=== PATIENT | female | born 1940 | race Caucasian/White ===

== ENCOUNTER 2018-12-17 13:44 | Emergency (ER) | payer MEDICARE ==
[2018-12-17 14:15] LABS: #Basophils 0.1 thou/uL (0.0-0.2); #Eosinphils 0.1 thou/uL (0.0-0.7); #Lymphocytes 1.5 thou/uL (1.20-3.40); #Monocytes 0.9 thou/uL (0.11-0.59); #Neutrophils 5.8 thou/uL (1.40-6.50); %Basophils 0.6 % (0.0-1.0); %Eosinophils 0.8 % (0.0-10.0); %Lymphocytes 17.9 % (21.0-51.0); %Monocytes 10.8 % (0.0-10.0); %Neutrophils 69.9 % (42.0-75.0); Hemoglobin 12.4 g/dL (12.0-16.0); Mean Corpuscular HGB CONC 33.2 g/dL (32.0-36.0); Mean Corpuscular Volume 87.5 fL (78.0-98.0); Mean Platelet Volume 7.4 fL (7.4-10.4); Platelet Count 211 thou/uL (130-400); RBC Distribution Width 12.2 % (11.5-14.5); Red Blood Cell (RBC) Count 4.28 mill/uL (4.20-5.40); White Blood Cell (WBC) Count 8.3 thou/uL (4.8-10.8)
[2018-12-17 14:27] LABS: Bacteria/HPF None Seen HPF (None Seen); Bilirubin Negative (Negative); Blood, Urine Negative (Negative); Clarity Clear (Clear); Glucose, Urine (Dipstick) 100 mg/dL (Negative); Leukocyte 250 Leu/uL (Negative); Mucous/LPF 1+ LPF (<2+); Nitrite Negative (Negative); Protein, Urine (Dipstick) 30 mg/dL (Neg-Trace); RBC/HPF 0-3 HPF (0-3); Squamous Epithelial 0-3 HPF (0-3); Urobilinogen Normal mg/dL (Less than 2)
[2018-12-17 14:35] LABS: ALT (SGPT) Less than 7 U/L (8-55); AST (SGOT) 9 U/L (5-34); Albumin 4.4 g/dL (3.4-4.8); Alkaline Phosphatase 93 U/L (40-110); Anion Gap 13 mmol/L (10-20); BUN (Urea Nitrogen) 17 mg/dL (9.8-20.1); Calc. Creatinine Clearance 0 mL/min (70-130); Calcium 9.8 mg/dL (7.8-10.44); Carbon Dioxide 29 mmol/L (23-31); Chloride 99 mmol/L (98-107); Estimated GFR-MDRD 53; Globulin 2.7 g/dL (2.4-3.5); Glucose 77 mg/dL (83-110); Potassium 3.5 mmol/L (3.5-5.1); Protein, Total 7.1 g/dL (6.0-8.3); Sodium 137 mmol/L (136-145)
--- NOTE | 2018-12-17 15:14 | CT ---
CT BRAIN NONCONTRAST: DATE: 12/17/2018 HISTORY: 78-year-old female status post acute head trauma from fall. FINDINGS: There is no evidence of acute intra-axial or extra-axial hemorrhage. There is no midline shift or any other mass effect. There is no extra-axial fluid collection. There is no evidence of obstructive hydrocephalus. Calvarium is intact. IMPRESSION: No acute intracranial findings.
--- NOTE | 2018-12-17 15:16 | CT ---
CT CERVICAL SPINE NONCONTRAST: DATE: 12/17/2018 HISTORY: cervical trauma FINDINGS: There are no jumped or perched facets. There is no evidence of acute fracture. The vertebral body hei ghts are maintained. There is no prevertebral soft tissue swelling. IMPRESSION: No evidence of acute fracture or acute traumatic subluxation.
--- NOTE | 2018-12-17 15:30 | RAD ---
Radiograph right hip 2 views: DATE: 12/17/2018 HISTORY: 78-year-old female with acute traumatic right hip pain due to fall. FINDINGS: Old healed fracture deformity of right inferior ramus. No evidence of acute fracture. Femoral head co ntour maintained. Hip joint space maintained. No subcapital osteophytes. Diffuse osteopenia. Questionable deformity of right superior ramus superolaterally. IMPRESSION: 1. No acute fracture identified. 2. Osteopenia. 3. Old fracture deformity of right inferior ramus. 4. Questionable old fracture deformity of right superior ramus. 5. If symptoms do not improve in the next few days, noncontrast MRI of the pelvis and hip would be th e most sensitive modality to detect occult acute fractures.
--- NOTE | 2018-12-17 15:34 | RAD ---
RADIOGRAPH CHEST 1 VIEW: DATE: 12/17/2018 TIME: 2:56 PM HISTORY: 78-year-old female with dysphagia and choking when eating. Rule out aspiration. COMPARISON: none FINDINGS: At the lateral aspect of the right midlung zone, there is an approximately 2 cm focal nodular noncalc ified density with very irregular, ill-defined margins. The rest of the lungs are clear. Cardiomediastinal silhouette is normal. No pneumothorax. IMPRESSION: Focal right upper lobe opacity. Recommend chest CT to rule out lung cancer.
--- NOTE | 2018-12-17 16:46 | CT ---
CT THORAX NONCONTRAST: DATE: 12/17/2018 HISTORY: 78-year-old female with right lung nodule found on chest radiograph. COMPARISON: no prior CT FINDINGS: At the lateral aspect of the right upper lobe near the junction between the anterior segment and post erior segment, there is a very spiculated noncalcified pulmonary mass measuring approximately 3 x 2 x 2.5 cm, which contacts the right lateral pleural surface. At the anterior portion of the right middle lobe abutting the right minor fissure, there is a noncalc ified spiculated mass measuring approximately 2 x 1.5 x 2.5 cm. At the precarinal midline mediastinum, there is an enlarged 2 x 1.5 x 2 cm lymph node. There is an enlarged 1.5 x 2.5 x 2.5 cm subcarinal mediastinal lymph node. It is more difficult to evaluate for hilar lymphadenopathy without IV contrast. No cardiomegaly, pericardial effusion, pleural effusion, thoracic aortic aneurysm, pneumothorax, or p ulmonary edema. Mild to moderate centrilobular emphysematous changes of bilateral upper lobes. Trachea and bilateral mainstem bronchi are patent and clear. No destructive osseous lesion identified . No adrenal nodule. IMPRESSION: 1) right upper lobe 3 cm mass: Evidence for primary lung cancer. 2) right middle lobe 2.5 cm mass: Probably a second primary lung cancer. Less likely pulmonary metast asis. 3) suspicious for midline metastatic mediastinal lymphadenopathy.
== END 2018-12-17 19:21 | disposition home or self-care (01) ==
LOC: ERS 13:44
DX: G20 Parkinson's disease (principal); K22.2 Esophageal obstruction; R44.3 Hallucinations, unspecified; Z79.899 Other long term (current) drug therapy; Z87.891 Personal history of nicotine dependence
CPT/HCPCS: 36415; 70450; 71045; 71250; 72125; 80053; 81003; 81015; 83690; 85025; 96360

== ENCOUNTER 2019-05-08 17:29 | Inpatient (IN) | payer MEDICARE ==
[~2019-05-08 17:29] MED LIST: Iopamidol-370 76% 500 ML 1 ML ONE
--- NOTE | 2019-05-08 18:43 | PDOC.FPRHP ---
- History of Present Illness Chief Complaint: Fatigue, Pleuritic CP, Weakness History of Present Illness: Pt is a 78 yo female who presented to the emergency department for worsening fatigue, weakness, and pleuritic chest pain. She states she has been experiencing these symptoms over the previous 3-4 months. She also has a 46# weight loss in 6 months. She has become increasingly SOB and can not walk up a flight out of stairs without dyspnea. She had a dry cough with rattle in chest. She was supposed to be seen by her PCP today but did not feel like she would be able to make the appt due to worsening fatigue so she went to the ED. She endorsed 4 episodes of syncope over the last year. On one occasion she hurt her R chest but the pain subsided. She now has pleuritic chest pain worse with cough, movement. 12/17 she was seen in the emergency department and found to have pulmonary lesions on CT and referred to oncology. She never followed up. She smoke 1/2 ppd for 20 years. Quit 1 year ago. She has new onset migraines. She does have Parkinson's and at baseline requires the use of a walker. ED Course: In the ED CXR revealed nodules. She was given asa for chest pain, 1 L NS, and potassium. - Allergies/Adverse Reactions Allergies Allergy/AdvReac Type Severity Reaction Status Date / Time albuterol [From Combivent] Allergy Verified 05/08/19 21:06 ipratropium [From Combivent] Allergy Verified 05/08/19 21:06 - Home Medications Medication Instructions Recorded Confirmed Type Acetaminophen [Tylenol] 1,000 mg PO Q6HR PRN 05/08/19 05/08/19 History Carbidopa/Levodopa 1.5 tab PO Q6HR 05/08/19 05/08/19 History [Carbidopa-Levodopa 25-100 Tab] Ibuprofen 200 mg PO Q6HR PRN 05/08/19 05/08/19 History Pantoprazole [Protonix] 1 tab PO DAILY 05/08/19 05/08/19 History - History PMHx: Parkinson's, GERD PSHx: Hysterectomy, Cholecystectomy, Appendectomy, R Foot Surg, Colonoscopy revealing polyps 1 year ago FHx: non-contributory Social: quit smoking tobacco 1 year ago, denies alcohol, drugs. Lives with . - Review of Systems General: reports: weight/appetite/sleep changes. denies: fever/chills Eyes: denies: eye pain, vision changes ENT: denies: nasal congestion, rhinorrhea Respiratory: reports: cough, shortness of breath, exercise intolerance. denies : congestion Cardiovascular: reports: chest pain. denies: palpitation, edema Gastrointestinal: denies: nausea, vomiting, diarrhea, constipation, abdominal pain, GI bleeding Genitourinary: denies: incontinence, dysuria Skin: denies: rashes, lesions Musculoskeletal: denies: pain, tenderness Neurological: reports: syncope. denies: numbness Psychological: denies: anxiety, depression - Vital signs BP: 160/88 HR: 77 RR: 18 Tmax: 97.7 Pox: 100% on RA Wt: 45 kg - Physical Exam Constitutional: NAD, awake, alert and oriented HEENT: PERRLA, EOMI Neck: trachea midline, no JVD Chest: no-tender to palpation, no lesions Heart: RRR, normal S1/S2, no edema Lungs: CTAB, no respiratory distress, no wheezing Abdomen: soft, non-tender, bowel sounds present Musculoskeletal: normal structure, normal tone Neurological: no focal deficit, CN II-XII intact Skin: good turgor, capillary refill <2 seconds Heme/Lymphatic: no purpura, no petechia FMR H&P: Results - Labs Result Diagrams: 05/09/19 04:24 - Radiology Interpretation Chest x-ray Status: image reviewed by me, report reviewed by me Additional comment: Multiple pulmonary lesions FMR H&P: A/P - Problem List (1) Weight loss, non-intentional Current Visit: Yes Status: Acute Code(s): R63.4 - ABNORMAL WEIGHT LOSS (2) Pulmonary lesion Current Visit: Yes Status: Acute Code(s): J98.4 - OTHER DISORDERS OF LUNG (3) Pleuritic chest pain Current Visit: Yes Status: Acute Code(s): R07.81 - PLEURODYNIA (4) Atrial flutter Current Visit: Yes Status: Acute Code(s): I48.92 - UNSPECIFIED ATRIAL FLUTTER (5) Syncope Current Visit: Yes Status: Acute Code(s): R55 - SYNCOPE AND COLLAPSE (6) Parkinson disease Current Visit: Yes Status: Acute Code(s): G20 - PARKINSON'S DISEASE (7) GERD (gastroesophageal reflux disease) Current Visit: Yes Status: Acute Code(s): K21.9 - GASTRO-ESOPHAGEAL REFLUX DISEASE WITHOUT ESOPHAGITIS - Plan Pt is a 78 yo female here for: # Pulmonary Lung Nodules Initially found in 2019 but pt did not follow up. Now has weight loss, fatigue, pleuritic chest pain. Likely secondary to malignancy. Hx of tobacco use. - consult pulm in the am for likely biopsy - consider onc consult - CT Head/Chest/Abdomen/Pelvis pending to look at lung lesions and possible mets. Pt has worsening OLIVERA's. # Syncopal episodes 4 in the last year. 2/2 cardiac vs neurogenic such as Parkinson's dysautonomia vs deconditioning vs vascular occlusion - monitor tele, pt did have a run of a-flutter; PAC on EKG - carotid doppler pending # Parkinson's Disease - continue home meds - requires walker for ambulation # GERD - continue home meds # Constipation - start miralax # A-flutter - start coreg, will benefit pt's elevated BP's # Elevated blood pressure - as above # Anxiety - atarax # OLIVERA - morphine prn VTE: Heparin, reversible if biopsy performed tomorrow Fluids: SL Diet: NPO midnight Code: Full Dispo: admit to tele obs FMR H&P: Upper Level - Pertinent history 78 year old female with PMH Parkinson's disease presents from [place] ED via EMS. Patient has a 7 month history of chest pain and dyspnea on exertion which has acutely worsened. She also endorses decreased appetite over the past several days. She endorses nausea and NBNB emesis. Patient denies fever, chills , palpitations. She states that she had a CXR done recently and was told she needed to follow up for repeat imaging. She has no known diagnosis of lung cancer. Patient does have a significant tobacco abuse history, and quit less than 10 years ago. She presented to the ED today due to profound weakness and fatigue. Patient states she has lost 45 pounds in the last 6 months. She endorses a history of chronic headaches but states over the last three months she has had headaches that feel like the top of her head is going to blow off. No associated vision changes. Patient states that she had an episode of syncope 2 months ago. She was going to get into her car and suddenly "blacked out". She does not remember too much after that point. She has had several other episodes where she has just suddenly fallen to the ground but can not recall events surrounding those instances. Patient states her memory is poor with her Parkinson's disease. Patient had cardiac stress test and echo done 2 months ago with primary metal sander. Both were normal at that time per patient. Patient lives at home with her . - Pertinent findings General: Alert and oriented x3. No acute distress. HEENT: Card: Resp: Abd: Ext: Skin: - Plan Date/Time: 05/08/19 938 I, Aysha Brady, have evaluated this patient and agree with findings/plan as outlined by equine internship resident. Pertinent changes/additions are listed here. Atypical chest pain 2/2 suspected lung cancer - CXR with multiple nodules; no confirmation of lung cancer - Patient had CT of chest in 11/2018 which showed a nodule at this time; increase in size and number since that time - VSS - Pulmonology consult in AM to discuss possible biopsy of central lesion vs. IR to discuss biopsy of peripheral lesion - Once known pathology identified, can get oncology on board - Echo and stress done two months ago normal per patient; can try to obtain records - Will need anticoagulation for DVT/PE ppx - NPO at 00:00 in case patient needs to undergo procedure - CT brain/chest/abdomen/pelvis to further evaluate for mets - Discussed likelihood of cancer; patient would like to proceed with chemo/ radiation should it be necessary Intermittent arrhythmia - Patient has gone into arrhythmia for a few seconds periodically on telemetry - Likely represents MAT given underlying pulmonary disease - She remains rate controlled and in sinus rhythm for a majority of the time - Will start low dose BB Syncope - Remote history - No precipitating symptoms - Recent stress test and echo normal per patient - Carotid dopplers pending Constipation - Miralax Adithya Hypokalemia - Replace K as needed Normocytic anemia - Lung cancer may be contributing factor - Continue to monitor Demand ischemia - Likely 2/2 pulmonary process - Trop indeterminate DVT PPX: Heparin GI PPX: Protonix Code Status: Full code Dispo: Obs on telemetry. Anticipate LOS <48 hours. Addendum - Attending - Attending Attestation Date/Time: 05/09/19 2382 I personally evaluated the patient and discussed the management with Dr. Rodriguez last night. I agree with the History, Examination, Assessment and Plan documented above with any addition or exceptions noted below.
[2019-05-08 19:25] LABS: Troponin I 0.055 ng/mL (< 0.028)
[2019-05-08] MEDS ORDERED: Ondansetron ODT 4 MG TAB PO PRN (20:39)
[2019-05-08 20:46] VITALS: BMI 18.2
[2019-05-08] MEDS ORDERED: Morphine 2 MG/ML SYRINGE SLOW IVP PRN (21:27)
[2019-05-08] MEDS ORDERED: hydrOXYzine 25 MG TAB PO PRN (21:29)
[2019-05-08] MEDS ORDERED: Polyethylene Glycol 3350 17 GM Packet PO SCH (21:45)
[2019-05-08] MEDS ORDERED: Carvedilol 3.125 MG TAB PO SCH (21:45)
[2019-05-08 22:04] LABS: Troponin I 0.034 ng/mL (< 0.028)
--- NOTE | 2019-05-08 23:57 | CT ---
CT of thehead with and without contrast: 05/08/2019 COMPARISON:None available HISTORY:Weakness, weight loss, fatigue, assess for metastatic disease TECHNIQUE: Serial axial CT imaging at5 mm intervals from thevertex through skull base with and withou t IV contrast. Findings:Noncontrast enhanced imaging of the head demonstrates no intracranial hemorrhage, midline sh ift, mass effect, or ventricular enlargement. There is mild periventricular hypodensity suggesting small vessel disease. The postcontrast imaging demonstrates no abnormal enhancement within the brain parenchyma. The visualized paranasal sinuses/mastoid air cells are well aerated. No displaced calvarial fracture. IMPRESSION: No acute findings.
[2019-05-08] MEDS ORDERED: Ibuprofen 200 MG TAB PO PRN (23:58)
[2019-05-09] MEDS: Acetaminophen 500 MG TAB PO PRN ×2 (00:10→08:54)
[2019-05-09] MEDS: Carbidopa/Levodopa 25-100 mg Tablet PO SCH ×4 (00:10→17:21)
[2019-05-09 05:05] LABS: Anion Gap 11 mmol/L (10-20); BUN (Urea Nitrogen) 11 mg/dL (9.8-20.1); Calc. Creatinine Clearance 50 mL/min (70-130); Calcium 8.8 mg/dL (7.8-10.44); Carbon Dioxide 28 mmol/L (23-31); Chloride 98 mmol/L (98-107); Estimated GFR-MDRD 84; Glucose 89 mg/dL (83-110); Magnesium 1.5 mg/dL (1.6-2.6); Potassium 3.5 mmol/L (3.5-5.1); Sodium 133 mmol/L (136-145)
--- NOTE | 2019-05-09 06:59 | PDOC.FM ---
- Subjective Subjective: Pt c/o generalized weakness, states it it improved from admission yesterday. She would like to seek treatment for her pulmonary nodules and pursue treatment Pt denies CP. - Objective MAR Reviewed: Yes Vital Signs & Weight: Vital Signs (12 hours) Temp Pulse Resp BP BP Pulse Ox 05/09/19 03:20 98.8 F 76 20 136/65 96 05/08/19 22:45 98.0 F 84 18 133/70 98 05/08/19 20:35 97.9 F 72 20 180/79 H 98 Weight Weight 45.314 kg I&O: 05/07/19 05/08/19 05/09/19 06:59 06:59 06:59 Intake Total 240 Output Total 650 Balance -410 Result Diagrams: 05/09/19 04:24 Phys Exam - Physical Examination Constitutional: NAD HEENT: moist MMs, sclera anicteric Neck: no JVD, full ROM Respiratory: no wheezing, no rales, no rhonchi, clear to auscultation bilateral Cardiovascular: RRR, no significant murmur Gastrointestinal: soft, non-tender, no distention, positive bowel sounds Musculoskeletal: no edema, pulses present Neurological: non-focal, moves all 4 limbs Psychiatric: normal affect Skin: no rash, normal turgor Dx/Plan (1) Pulmonary lesion Code(s): J98.4 - OTHER DISORDERS OF LUNG Status: Acute (2) Atrial flutter Code(s): I48.92 - UNSPECIFIED ATRIAL FLUTTER Status: Acute (3) Parkinson disease Code(s): G20 - PARKINSON'S DISEASE Status: Acute (4) Weight loss, non-intentional Code(s): R63.4 - ABNORMAL WEIGHT LOSS Status: Acute - Plan Plan: Pt is a 78 yo female here for: # Pulmonary Lung Nodules Initially found in 2019 but pt did not follow up. Now has weight loss, fatigue, pleuritic chest pain. Likely secondary to malignancy. Hx of tobacco use. - consult IR for possible CT guided biopsy. - consider onc consult - CT Head negative. Chest/Abdomen/Pelvis pending to look at lung lesions and possible mets. Pt has worsening OLIVERA's. # Syncopal episodes 4 in the last year. 2/2 cardiac vs neurogenic such as Parkinson's dysautonomia vs deconditioning vs vascular occlusion - monitor tele, pt did have a run of a-flutter; PAC on EKG - carotid doppler pending # Parkinson's Disease - continue home meds - requires walker for ambulation # GERD - continue home meds # Constipation - start miralax # A-flutter - start coreg, will benefit pt's elevated BP's # Elevated blood pressure - as above # Anxiety - atarax # OLIVERA - morphine prn VTE: Heparin, reversible if biopsy performed tomorrow Diet: NPO midnight Code: Full Dispo: admit to tele obs Addendum - Attending - Attending Attestation Date/Time: 05/09/19 8200 I personally evaluated the patient and discussed the management with Dr. Alonso. I agree with the History, Examination, Assessment and Plan documented above with any addition or exceptions noted below. Patient here for suspected lung cancer unknown type with metastatic disease. She is feeling improved. We are aware that best method of tissue diagnosis is by bronchoscopy that will not be performed in observation status. Patient and family agreeable for discharge and outpatient follow up with Oncology and Pulm. She is feeling improved and stable for discharge.
--- NOTE | 2019-05-09 07:44 | CT ---
Final interpretation CT examination chest, abdomen, and pelvis: 05/07/2018 COMPARISON: Chest CT 12/17/2018 HISTORY: Lung masses, assess for metastatic disease FINDINGS: There is a filling defect within the right internal jugular vein as well as within the superior vena cava suggesting venous thrombosis, not mentioned in the preliminary report. Enlarged lymph nodes are noted within the supraclavicular region on the right measuring up to 1.4 cm. No axillary lymphade nopathy. Necrotic lymphadenopathy in the pretracheal region noted measuring up to 1.4 cm. Necrotic AP window lymphadenopathy measures 1.5 cm and necrotic subcarinal adenopathy measures up to 1.9 cm. T here is a small new pericardial effusion. There is an ill-defined mass in the right hilar region severely narrowing the left upper lobe bronchu s. This ill-defined right hilar mass is much more prominent than on the prior examination, estimated in the 4-5 cm range. There is a right middle lobe mass on axial image 30 measuring 3 cm, i ncreased from 2 cm on the prior exam. There is a new lesion of fluid density within the cardiophrenic angle on the right measuring 2.8 cm in AP dimension. There is an irregular pleural-base d mass within the lateral aspect of the right upper lobe measuring approximately 2.6 cm in AP dimension, increased in size when compared to the prior exam. New linear areas of interstitial densit y in the right upper lobe suggests possible interval development of interstitial lymphangitic spread of malignancy. Subcentimeter peripheral left upper lobe nodules are noted on image 20, image 2 1, and image 24, which appear new when compared to the prior exam. There is a new nodular density within the inferior anterior aspect of the left upper lobe on image 45 measuring 8 mm. There are nume jay scattered subcentimeter pulmonary nodules, primarily peripherally located, within the left lower lobe, new when compared to prior imaging. There are multiple new peripheral subcentimeter pulmo nary nodules within the right lower lobe as well. There is an enlarged right hilar node measuring 1.7 cm, which has grown since the prior examination. Osseous structures of the chest demonstrate an age-indeterminate mild anterior wedge compression frac ture/superior endplate fracture at the T1, stable when compared to the 12/17/2018 exam. No free intraperitoneal air. No discrete focal liver lesion. Spleen, pancreas, adrenal glands, and kidneys demonstrate no acute fi ndings. Small volume fluid noted in the pelvic cul-de-sac. Diverticulosis of the sigmoid and descending colon noted with no evidence for diverticulitis. The vascular structures of the abdomen/pelvis demonstrate multifocal atherosclerotic calcification of the abdominal aorta and its branches. No abdominal or pelvic lymphadenopathy is seen. Stable inferior endplate fractures of T12 and L1 noted. IMPRESSION: Evidence of progression of malignancy with extensive lymphadenopathy including the right supraclavicu lar, right hilar region, and throughout the mediastinum. There has also been interval enlargement of masses within the right upper and right middle lobe as well as interval development of multiple bi lateral subcentimeter pulmonary nodules. Not mentioned in the preliminary report is venous clot within the internal jugular vein and the superior vena cava. CODE T CODE QD Transcribed Date/Time: 05/09/2019 8:05 AM
[2019-05-09] MEDS: Carvedilol 3.125 MG TAB PO SCH ×2 (08:54→17:20)
[2019-05-09] MEDS: Heparin 5,000 UNITS/ML VIAL SC SCH ×2 (08:55→15:37)
[2019-05-09] MEDS: Polyethylene Glycol 3350 17 GM Packet PO SCH (08:56)
[2019-05-09] MEDS ORDERED: Enoxaparin Sodium 40 MG/0.4 ML SYRINGE SC SCH (09:00)
[2019-05-09] MEDS ORDERED: Lorazepam 2 MG/ML VIAL SLOW IVP SCH (15:45)
[2019-05-09] MEDS ORDERED: Lidocaine 1% PF 5 ML VIAL ONE (15:54)
[2019-05-09] MEDS ORDERED: Sodium Bicarbonate 2.5 MEQ/5 ML VIAL ONE (15:54)
--- NOTE | 2019-05-09 16:44 | ULT ---
Limited ultrasound of the right supraclavicular region Ultrasound-guided fine-needle aspiration of right supraclavicular lymphadenopathy: 05/09/2019 HISTORY: Lymphadenopathy within the right supraclavicular region noted on recent CT FINDINGS: Focused ultrasound of the right supraclavicular region was performed. Images demonstrate nu merous hypoechoic masses consistent with extensive supraclavicular lymphadenopathy, with multiple nodes abutting one another measuring up to approximately 2 cm. Informed consent for tissue sampling with sonographic guidance was obtained prior to the procedure. Skin overlying the lymph nodes within the right supraclavicular region prepped and draped in normal s terile fashion. Skin was anesthetized with 1% buffered lidocaine. A 20-gauge Franseen needle was utilized for biopsy. The 20-gauge Franseen needle was inserted into an enlarged right supraclavicular node and multiple passes were performed with real-time ultrasound guidance. The patient tolerated the procedure well. No postprocedural hemorrhage. The obtained specimen was given to the pathologist at the bedside to reports visualizing tumor cells on touch prep. IMPRESSION: Supraclavicular lymphadenopathy on the right. Successful biopsy with ultrasound guidance as detailed above.
[2019-05-09] MEDS: Enoxaparin Sodium 60 MG/0.6 ML SYRINGE SC SCH (20:42)
[2019-05-10] MEDS: Carbidopa/Levodopa 25-100 mg Tablet PO SCH ×3 (00:09→11:36)
[2019-05-10 05:19] LABS: Platelet Count 242 thou/uL (130-400)
[2019-05-10 05:42] LABS: Anion Gap 10 mmol/L (10-20); BUN (Urea Nitrogen) 12 mg/dL (9.8-20.1); Calc. Creatinine Clearance 50 mL/min (70-130); Calcium 8.8 mg/dL (7.8-10.44); Carbon Dioxide 29 mmol/L (23-31); Chloride 96 mmol/L (98-107); Estimated GFR-MDRD 84; Glucose 97 mg/dL (83-110); Magnesium 1.7 mg/dL (1.6-2.6); Potassium 3.2 mmol/L (3.5-5.1); Sodium 132 mmol/L (136-145)
[2019-05-10] MEDS ORDERED: Potassium Chloride 20 MEQ TAB PO SCH (06:30)
--- NOTE | 2019-05-10 06:35 | PDOC.FM ---
- Subjective Subjective: Pt states she had some SOB with CP overnight, that is not present anymore. Pt underwent an US guided biopsy of R supraclavicular node yesterday. Successful biopsy. Denies any pain to biopsy site. - Objective MAR Reviewed: Yes Vital Signs & Weight: Vital Signs (12 hours) Temp Pulse Resp BP Pulse Ox 05/10/19 04:50 97.7 F 72 14 132/63 95 05/09/19 20:41 98.5 F 75 18 131/63 98 Weight Admit Weight 45.314 kg Weight 45.314 kg I&O: 05/08/19 05/09/19 05/10/19 06:59 06:59 06:59 Intake Total 240 2545 Output Total 650 350 Balance -410 2195 Result Diagrams: 05/10/19 04:52 05/10/19 04:52 Phys Exam - Physical Examination Constitutional: NAD HEENT: PERRLA, moist MMs, sclera anicteric Neck: supple, full ROM R supraclavicular LAD. Respiratory: no wheezing, no rales, no rhonchi, clear to auscultation bilateral Cardiovascular: RRR, no rub Gastrointestinal: soft, non-tender, no distention, positive bowel sounds Musculoskeletal: no edema, pulses present Neurological: non-focal, moves all 4 limbs Psychiatric: normal affect, A&O x 3 Skin: no rash, normal turgor, cap refill <2 seconds Dx/Plan (1) Internal jugular (IJ) vein thromboembolism, acute Code(s): I82.C19 - ACUTE EMBOLISM AND THROMBOSIS OF UNSP INTERNAL JUGULAR VEIN Status: Acute Qualifiers: Laterality: right Qualified Code(s): I82.C11 - Acute embolism and thrombosis of right internal jugular vein (2) Pulmonary lesion Code(s): J98.4 - OTHER DISORDERS OF LUNG Status: Acute (3) Atrial flutter Code(s): I48.92 - UNSPECIFIED ATRIAL FLUTTER Status: Acute (4) Parkinson disease Code(s): G20 - PARKINSON'S DISEASE Status: Acute (5) Weight loss, non-intentional Code(s): R63.4 - ABNORMAL WEIGHT LOSS Status: Acute (6) Hypokalemia Code(s): E87.6 - HYPOKALEMIA Status: Acute - Plan Plan: Pt is a 78 yo female here for: # 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 - possible consult to IR for intravenous thrombolysis # Pulmonary Lung Nodules Initially found in 2019 but pt did not follow up. Now has weight loss, fatigue, pleuritic chest pain. Likely secondary to malignancy. Hx of tobacco use. - IR performed US guided biopsy of R supraclavicular LAD, successful biopsy path initial statement of tumor cells present, final path pending. - Onc consult outpt. - CT Head negative. Chest/Abdomen/Pelvis lung lesions with LAD. #Hypokalemia - replaced K - trending bmp daily, will replace as necessary # Syncopal episodes 4 in the last year. 2/2 cardiac vs neurogenic such as Parkinson's dysautonomia vs deconditioning vs vascular occlusion - monitor tele, pt did have a run of a-flutter; PAC on EKG # Parkinson's Disease - continue home meds - requires walker for ambulation # GERD - continue home meds # Constipation - start miralax # A-flutter - start coreg, will benefit pt's elevated BP's # Elevated blood pressure - as above # Anxiety - atarax # OLIVERA - morphine prn VTE: Th Lovenox Diet: NPO midnight Code: Full Dispo: admit to tele obs Addendum - Attending - Attending Attestation Date/Time: 05/10/19 [id number] I personally evaluated the patient and discussed the management with Dr. Alonso. I agree with the History, Examination, Assessment and Plan documented above with any addition or exceptions noted below. Patient underwent successful biopsy yesterday for eventual tissue diagnosis of her likely lung cancer. She also has this thrombus in her SVC and IJ. We will discuss with a few specialists about the best way to manage this, but she may need transfer to another facility for definitive therapy. Continue Lovenox for now, anti-Xa level appropriate.
[2019-05-10] MEDS: Enoxaparin Sodium 60 MG/0.6 ML SYRINGE SC SCH (09:14)
[2019-05-10] MEDS: Carvedilol 3.125 MG TAB PO SCH (09:14)
[2019-05-10] MEDS: Polyethylene Glycol 3350 17 GM Packet PO SCH (09:14)
[2019-05-10 12:10] VITALS: BP 140/76; TEMP 98.4
--- NOTE | 2019-05-10 13:22 | PDOC.BPN ---
- Brief Progress Note Spoke with Dr. Alexander, CV surgeon, who recommended treatment of her SVC and R IJ thrombus via treatment of her lung cancer, as this is the probable cause of the compression vs thrombus. He states that thrombolysis or thombectomy would not be indicated at this time for this pt's specific case. Dr. Alexander recommended no anticoagulation to be used to treat the SVC and right IJ thrombus. PT will f/u with outpt oncology for treatment options.
--- NOTE | 2019-05-11 14:12 | DIS ---
DATE OF ADMISSION: 05/09/2019 DATE OF DISCHARGE: 05/10/2019 RESIDENT: Fern Alonso DO ADMITTING ATTENDING: David Dominique MD DISCHARGE ATTENDING: Catarino Moran MD. CONSULTS: PT/OT, walking program. PROCEDURES: Echocardiogram which showed a small trivial pericardial effusion. EF is estimated at 55% to 60%. EA flow reversal noted suggestive of diastolic dysfunction. Mitral annular calcification present. Mild mitral regurg is present. Mild tricuspid regurg present. Right supraclavicular ultrasound-guided biopsy performed on 05/[address] brain with no acute finding. CT chest, abdomen, pelvis, which showed evidence of progression of malignancy with extensive lymphadenopathy including the right supraclavicular, right hilar region and throughout the mediastinum. There has also been interval enlargement of masses within the right upper and right middle lobe as well as interval development of multiple bilateral subcentimeter pulmonary nodules, not mentioned in the preliminary report. Her venous clot was within the IJ vein and superior vena cava. DIAGNOSES: 1. Superior vena cava and right internal jugular filling defect consistent with thrombosis. 2. Pulmonary lung nodules. 3. Hypokalemia. 4. Syncopal episodes. 5. Parkinson disease. 6. Gastroesophageal reflux disease. 7. Constipation. 8. Atrial flutter. 9. Elevated blood pressure. 10. Anxiety. 11. Headache. DISCHARGE MEDICATIONS: 1. Carbidopa Levodopa 1.5 tab p.o. q.6 hours. 2. Carvedilol 3.125 p.o. b.i.d. 3. Protonix 40 mg p.o. daily. HISTORY OF PRESENT ILLNESS/HOSPITAL COURSE: Ms. Jacobs is a 78-year-old female came to the emergency department, because of gradual weakness ever since last year. She had just felt so weak that day she decided to come on into the ER to be evaluated. The patient had been told in November that she had pulmonary nodules and never followed up with Oncology or pulmonology for diagnosis. She presents and has CT evidence of pulmonary nodules with diffuse lymphadenopathy as stated above in procedures under CT chest, abdomen, pelvis. Pulmonology and Interventional Radiology were both approached with the idea of either a bronch versus ultrasound-guided biopsy. The decision was made to perform an ultrasound-guided biopsy of the right supraclavicular nodes to form a tissue diagnosis for the patient in efforts towards oncology visit. Patient already has a referral to see Dr. Jones in the office and plans to schedule her as soon as possible and wants a tissue sample back. The EUS guided biopsy was successful with tissue of tumor cells present within the biopsy at the time of biopsy. The patient's CT scan showed a right IJ as well as well as superior vena cava thrombosis. Dr. Alexander with CV surgery was curbside consulted for a conversation with him on treatment for this patient's thrombosis. Dr. Alexander's recommendations were that she receive treatment for her cancer, which will then help with the compressive effects. He did not recommend any thrombectomy or thrombolysis at this time for the thrombosis in the SVC and IJ. He did state that if we were to do either of which it would come right back due to possible compression from the tumor cell. Dr. Alexander also recommended that this patient not be put on any therapeutic Lovenox or anticoagulant at this time as she is asymptomatic and this has slowly developed over time. He did stress that she just needs treatment for her cancer at this time and not for the thrombosis. We thank him for his recommendations . The patient's weakness was slightly improved over her hospital course, and she is eager to seek treatment for her cancer and to follow up with Dr. Jones in the outpatient setting. DISPOSITION: Stable upon discharge. DISCHARGE INSTRUCTIONS: Location: Home. Diet: Regular diet. Activity: As tolerated. Followup: With Dr. Jones in 7 days and primary care physician in 3 days. Job ID: [id number]
== END 2019-05-10 15:44 | disposition home or self-care (01) | DRG 824 ==
LOC: ERS 17:29 → 2SW 18:45 → OBSVTOIN 05-09 14:24
PROVIDERS: ADMIT Family Medicine; ATTEND Family Medicine
PROC: 07B13ZX Excision of Right Neck Lymphatic, Percutaneous Approach, Diagnostic (ICD-10-PCS; principal; 2019-05-09)
DX: C77.0 Secondary and unspecified malignant neoplasm of lymph nodes of head, face and neck (principal); C34.90 Malignant neoplasm of unspecified part of unspecified bronchus or lung; I48.92 Unspecified atrial flutter; I82.C11 Acute embolism and thrombosis of right internal jugular vein; G43.909 Migraine, unspecified, not intractable, without status migrainosus; K21.9 Gastro-esophageal reflux disease without esophagitis; G20 Parkinson's disease; K59.00 Constipation, unspecified; R03.0 Elevated blood-pressure reading, without diagnosis of hypertension; F41.9 Anxiety disorder, unspecified; E87.6 Hypokalemia; D63.0 Anemia in neoplastic disease; Z87.891 Personal history of nicotine dependence; Z79.899 Other long term (current) drug therapy; Z88.8 Allergy status to other drugs, medicaments and biological substances; Z90.49 Acquired absence of other specified parts of digestive tract
CPT/HCPCS: 36415; 38505; 70470; 71260; 74177; 76536; 80048; 83735; 85014; 85018; 85049; 85520; 88305; 88333; 88341; 88342; 93306; 99285; J1650; J2001; J2270; J3475; J3490; Q9967

== ENCOUNTER → 2019-05-18 | Outpatient (CLI) | payer MEDICARE ==
--- NOTE | 2019-05-18 12:16 | PET ---
EXAM: PET CT skull to mid thigh COMPARISON: CT chest abdomen pelvis 05/08/2019 HISTORY: Malignant neoplasm of the right main bronchus/lung TECHNIQUE: A PET/CT was performed from the skull to the mid thigh after administration of 10.8 millic uries of F-18 FDG. Evaluation was performed on a [employer] workstation. FINDINGS: NECK: No areas of hypermetabolic activity CHEST: There is a right hilar lung mass with a max SUV value of 7.3. There is also a peripheral hyper metabolic masslike opacity in the lateral aspect of the right upper lobe. A separate mass is seen in the right middle lobe with max SUV value of 7.7. There are bilateral hilar hypermetabolic lymph no torsten with a max is a value of 5.7. There is bilateral mediastinal enlarged lymph nodes with max SUV value of 6.4. There is a hypermetabolic right infraclavicular lymph node with max SUV value of 8.1. O ther scattered nonhypermetabolic nodules are seen in both lungs. These nodules are less than 5 mm in size. ABDOMEN/PELVIS: There is a hypermetabolic 1.4 cm right adrenal nodule with max SUV value of 6.9. SKELETON: No areas of hypermetabolic activity CT images used for attenuation correction show no significant abnormality. IMPRESSION: 1. Right upper and middle lobe hypermetabolic disease likely represents the patient's known malignanc y. There appears to be metastatic disease to the bilateral hilar regions and mediastinum as well as the right infraclavicular region. 2. Hypermetabolic right adrenal nodule likely represents a metastatic lesion. 3. The scattered nodules in the lungs do not demonstrate hypermetabolic activity but are likely below PET resolution.
== END ==
LOC: PET 09:45
PROVIDERS: ATTEND Internal Medicine Hematology & Oncology
DX: C34.01 Malignant neoplasm of right main bronchus (principal); E27.8 Other specified disorders of adrenal gland; R91.8 Other nonspecific abnormal finding of lung field
CPT/HCPCS: 78815; A9552

== ENCOUNTER 2019-05-19 08:37 | Outpatient (CLI) | payer MEDICARE ==
[2019-05-19] MEDS ORDERED: Magnevist 469MG/ML 20 ML VIAL ONE (09:56)
--- NOTE | 2019-05-19 12:07 | MRI ---
MRI OF BRAIN WITH AND WITHOUT CONTRAST: INDICATION: Lung cancer. Assess for metastatic disease. FINDINGS: The ventricles have normal size and position. Marked chronic ischemic white matter changes are seen in both cerebral hemispheres. No evidence of restricted diffusion. Review of postcontrast images shows a subtle focus of enhancement in the dentate nucleus on the left along the lateral wall of the left ventricle. This could potentially be artifactual or vascular but is seen in all 3 planes on postcontrast images. No other abnormal enhancement identified. Intracranial internal carotid arteries and proximal cerebral arteries show flow voids. Paranasal sinuses appear clear. There may be mild mucosal edema in the right mastoids. Calvarium unremarkable. IMPRESSION: 1. Subtle focus of enhancement in the dentate nucleus of the left cerebellum adjacent to the lateral wall of the 4th ventricle. There is no associated gliosis on FLAIR sequence. The brush-like appear ance may indicate a vascular origin; however, a metastatic lesion is not excluded. Followup will be necessary to assess stability. 2. Moderately severe chronic ischemic white matter change. POS: JUMANA
== END 2019-05-19 08:38 | disposition home or self-care (01) ==
LOC: MRI 08:37
PROVIDERS: ATTEND Internal Medicine Hematology & Oncology
DX: C34.01 Malignant neoplasm of right main bronchus (principal); I67.82 Cerebral ischemia
CPT/HCPCS: 70553; A9579

== ENCOUNTER 2019-05-23 11:59 | Emergency (ER) | payer MEDICARE ==
[2019-05-23 12:27] LABS: #Lymphocytes 0.7 thou/uL (1.20-3.40); #Monocytes 0.6 thou/uL (0.11-0.59); #Neutrophils 8.6 thou/uL (1.40-6.50); %Basophils 0.3 % (0.0-1.0); %Eosinophils 0.2 % (0.0-10.0); %Lymphocytes 6.6 % (21.0-51.0); Hemoglobin 10.4 g/dL (12.0-16.0); Mean Corpuscular HGB CONC 32.7 g/dL (32.0-36.0); Mean Corpuscular Hemoglobin 27.5 pg (27.0-31.0); Mean Corpuscular Volume 84.1 fL (78.0-98.0); Mean Platelet Volume 7.3 fL (7.4-10.4); Platelet Count 281 thou/uL (130-400); RBC Distribution Width 13.3 % (11.5-14.5); Red Blood Cell (RBC) Count 3.78 mill/uL (4.20-5.40); White Blood Cell (WBC) Count 9.9 thou/uL (4.8-10.8)
[2019-05-23 12:39] LABS: ALT (SGPT) Less than 7 U/L (8-55); AST (SGOT) 6 U/L (5-34); Albumin 3.8 g/dL (3.4-4.8); Alkaline Phosphatase 70 U/L (40-110); Anion Gap 12 mmol/L (10-20); BUN (Urea Nitrogen) 16 mg/dL (9.8-20.1); Bilirubin, Total 0.8 mg/dL (0.2-1.2); Calc. Creatinine Clearance 0 mL/min (70-130); Calcium 9.5 mg/dL (7.8-10.44); Carbon Dioxide 28 mmol/L (23-31); Chloride 93 mmol/L (98-107); Estimated GFR-MDRD 74; Globulin 2.6 g/dL (2.4-3.5); Glucose 108 mg/dL (83-110); Potassium 3.8 mmol/L (3.5-5.1); Protein, Total 6.4 g/dL (6.0-8.3); Sodium 129 mmol/L (136-145)
[2019-05-23 12:40] LABS: Bilirubin Negative (Negative); Blood, Urine Negative (Negative); Clarity Clear (Clear); Glucose, Urine (Dipstick) Normal (Negative); Leukocyte Negative Leu/uL (Negative); Nitrite Negative (Negative); Protein, Urine (Dipstick) Negative (Neg-Trace); Urobilinogen Normal mg/dL (Less than 2)
--- NOTE | 2019-05-23 12:43 | RAD ---
Chest one view HISTORY: Lung cancer. Weakness. COMPARISON: 05/08/2019. FINDINGS: Cardiac silhouette is magnified by projection. Pulmonary vasculature upper limits of normal . Mediastinum is midline. Mass at the right hilum and atelectasis of the right upper lobe similar in ap pearance to the previous exam. Opacity at each lateral costophrenic angle has increased since the prior study and is greater on the right than the left. Parenchymal infiltrate at the right posterior lung base has also worsened. No evidence of pneumothorax. IMPRESSION: Interval increase in size of still small bilateral pleural effusions, right greater than left. Progression of right basilar infiltrate. Right hilar mass and upper lobe atelectasis are stable.
--- NOTE | 2019-05-23 13:44 | CT ---
CT arteriogram chest with IV contrast and 3-D imaging HISTORY: Dyspnea. Weakness. Lung cancer. COMPARISON: 05/08/2019. FINDINGS: There is good contrast opacification pulmonary arteries and thoracic aorta with normal bran terrance of the great vessels at the aortic arch. Pericardial fluid has increased slightly since the previous exam. Small bilateral pleural effusions are now present, right greater than left. Dependent atelectasis at each lung base. Spiculated masses within the right upper and middle lobes are again demonstrated, similar in appearan ce to the previous study. Right hilar mass engulfs the right upper lobe pulmonary arteries which are effaced and attenuated. Innumerable metastatic nodules scattered throughout the parenchyma of each lung are again seen. Enlarged lymph nodes throughout the mediastinum are again demonstrated, measuring up to 3.3 cm x 2.9 cm at the subcarinal level. IMPRESSION : No CT evidence of pulmonary embolus. Interval development of small bilateral pleural effusions, right greater than left. Slight interval increase in size of pericardial effusion. Large right lung masses, mediastinal adenopathy, and extensive widespread parenchymal metastatic lesi ons are stable.
[2019-05-23] MEDS ORDERED: Iopamidol 370 76% 100 ML VIAL ONE (15:38)
[2019-05-24 12:41] LABS: T4 10.6 ug/dL (4.87-11.72); Thyroid Stimulating Hormone 1.2293 uIU/mL (0.35-4.94)
--- NOTE | 2019-05-25 11:12 | EKG ---
Test Reason : Blood Pressure : / mmHG Vent. Rate : 091 BPM Atrial Rate : 091 BPM P-R Int : 166 ms QRS Dur : 076 ms QT Int : 406 ms P-R-T Axes : 063 040 -16 degrees QTc Int : 499 ms Normal sinus rhythm Low voltage QRS Septal infarct , age undetermined Abnormal ECG Confirmed by ASHWIN JIM, YESENIA Mathur ([id number]), book or script editor YUMIKO HAN ([id number]) on 05/25/2019 11:12:39 AM Referred By: Confirmed By:YESNEIA CHRISTOPHER MD
== END 2019-05-23 14:28 | disposition home or self-care (01) ==
LOC: ERS 11:59
DX: R53.1 Weakness (principal); C34.90 Malignant neoplasm of unspecified part of unspecified bronchus or lung; G20 Parkinson's disease; Z79.899 Other long term (current) drug therapy
CPT/HCPCS: 51701; 71045; 71275; 80053; 81003; 83605; 83880; 84436; 84443; 85025; 93005; 94760; Q9967

== ENCOUNTER 2019-05-29 17:59 | Inpatient (IN) | payer MEDICARE, OTHER ==
[2019-05-29 18:31] LABS: #Lymphocytes 0.7 thou/uL (1.20-3.40); #Monocytes 1.6 thou/uL (0.11-0.59); #Neutrophils 12.2 thou/uL (1.40-6.50); %Basophils 0.1 % (0.0-1.0); %Eosinophils 0.2 % (0.0-10.0); %Neutrophils 83.7 % (42.0-75.0); Mean Corpuscular HGB CONC 32.6 g/dL (32.0-36.0); Mean Corpuscular Volume 82.9 fL (78.0-98.0); Platelet Count 223 thou/uL (130-400); RBC Distribution Width 14.8 % (11.5-14.5); Red Blood Cell (RBC) Count 3.69 mill/uL (4.20-5.40); White Blood Cell (WBC) Count 14.6 thou/uL (4.8-10.8)
[2019-05-29 18:39] LABS: INR-International Normal Ratio 1.3; PTT 26.9 SEC (22.9-36.1)
--- NOTE | 2019-05-29 18:39 | RAD ---
RADIOGRAPH CHEST 1 VIEW: DATE: 05/29/2019 TIME: 6:28 PM HISTORY: 79-year-old female with stage IV right lung cancer presents with chest pain COMPARISON: 05/23/2019 FINDINGS: Widening of the cardiac silhouette was shown by prior CT to be due to pericardial effusion. No interval change in small right pleural effusion. Slight interval increase in volume of small left pleural effusion. No pneumothorax. Numerous tiny noncalcified bilateral pulmonary nodules. Focal band of increased attenuation from enlarged right hilum to right lateral pleural surface, in th e upper lobe, corresponds to the primary lung cancer and postobstructive pneumonitis or postobstructive atelectasis, as demonstrated on prior CT. This appears minimally thicker than before, but that could be due to slight positional differences. No interval change in the diffuse mild interstitial densities throughout the right lung. IMPRESSION: 1. Right upper lobe lung cancer with adjacent inseparable postobstructive pneumonitis/postobstructive atelectasis, with little or no interval change. 2. Small bilateral pleural effusions. The left one appears to have slightly increased in volume since prior study. 3. Pericardial effusion. 4. Diffuse interstitial densities in the right lung may or may not represent lymphangitic carcinomato sis. No interval change. 5. Numerous tiny bilateral noncalcified pulmonary nodules may represent pulmonary metastases.
[2019-05-29 18:54] LABS: ALT (SGPT) 28 U/L (8-55); AST (SGOT) 504 U/L (5-34); Albumin 4.1 g/dL (3.4-4.8); Alkaline Phosphatase 85 U/L (40-110); Anion Gap 19 mmol/L (10-20); BUN (Urea Nitrogen) 32 mg/dL (9.8-20.1); Bilirubin, Total 0.9 mg/dL (0.2-1.2); Calc. Creatinine Clearance 0 mL/min (70-130); Calcium 10.3 mg/dL (7.8-10.44); Carbon Dioxide 23 mmol/L (23-31); Chloride 91 mmol/L (98-107); Estimated GFR-MDRD 40; Glucose 123 mg/dL (83-110); Potassium 5.3 mmol/L (3.5-5.1); Protein, Total 7.1 g/dL (6.0-8.3); Sodium 128 mmol/L (136-145)
[2019-05-29] MEDS ORDERED: Vancomycin 1 GM/200 ML BAG ONE (19:42)
[2019-05-29] MEDS ORDERED: Ondansetron ODT 4 MG TAB PO PRN (20:32)
[2019-05-29] MEDS ORDERED: Acetaminophen 325 MG TAB PO PRN (20:32)
[2019-05-29] MEDS ORDERED: Ondansetron PF 4 MG/2 ML Vial IVP PRN (20:32)
[2019-05-29] MEDS ORDERED: Acetaminophen 650 MG Suppository PR PRN (20:32)
[2019-05-29] MEDS ORDERED: Senokot S 8.6-50 MG TAB PO PRN (20:32)
--- NOTE | 2019-05-29 20:49 | PDOC.FPRHP ---
- History of Present Illness Chief Complaint: SOB, Wheezing History of Present Illness: Patient is a 79 yo female with hx of metastatic Lung cancer (primary mass in RUL ) who presents with complaint of SOB, wheezing, and increased work of breathing over past 2 days. She also states she feels very weak and has fallen 2 or 3 times in the last few days. Patient was recently admitted to [facility] from 05/07- during which she underwent CT-guided biopsy and was found to have adenocarcinoma of lung with primary site in RUL and multiple scattered pulmonary nodules of likely metastases. She was found during that admission to have SVC and R IJ thrombus. Dr. Alexander was consulted and stated at that time that thrombolysis or thombectomy would not be indicated at that time. She was also seen at the [facility] ED on 05/23/2019 for respiratory distress that improved after breathing treatments. Patient additionally complains today of some right upper chest pain that radiates into her back in addition to nausea. She has not taken anything other than her Rx meds for pain but she cannot name them. Patient usually sees Dr. Jones with Oncology for management of her lung cancer, she reports that she had her first dose of Keytruda last but her reports he is unsure if this is accurate. ED Course: Given Duoneb x1, Levaquin 750 mg, Vancomycin 1 g, 1L Normal Saline. CXR unchanged compared to last admission, c/w lung cancer findings with slightly increased pleural effusion on left. CTA pending. Pertinent labwork found to have Na 128, K 5.3, BUN 32, Cr 1.3, Hgb 10, BNP 388, WBC 14.6, Lactic acid 5.0 - Allergies/Adverse Reactions Allergies Allergy/AdvReac Type Severity Reaction Status Date / Time albuterol [From Combivent] Allergy Verified 05/30/19 00:14 ipratropium [From Combivent] Allergy Verified 05/30/19 00:14 - Home Medications Medication Instructions Recorded Confirmed Type Acetaminophen [Tylenol Extra 1,000 mg PO Q6HR PRN 05/08/19 05/30/19 History Strength] Carbidopa/Levodopa 1.5 tab PO Q6HR 05/08/19 05/30/19 History [Carbidopa-Levodopa 25-100 Tab] Ibuprofen 200 mg PO Q6HR PRN 05/08/19 05/30/19 History Pantoprazole [Protonix] 1 tab PO DAILY 05/08/19 05/30/19 History Benzonatate 100 mg PO Q8H PRN 05/30/19 05/30/19 History Fludrocortisone Acetate 0.1 mg PO DAILY 05/30/19 05/30/19 History Prochlorperazine Maleate 10 mg PO Q8HR PRN 05/30/19 05/30/19 History - History PMHx: Parkinson's, GERD, Adenocarcinoma of right lung with mets, COPD PSHx: Hysterectomy, Cholecystectomy, Appendectomy, R Foot Surg, Colonoscopy revealing polyps 1 year ago FHx: non-contributory Social: quit smoking tobacco 1 year ago (prev smoked 1/2 ppd for 20 yrs), denies alcohol, drugs. Lives with who is primary design studio consultant. - Review of Systems General: reports: fatigue. denies: fever/chills Eyes: denies: vision changes ENT: denies: nasal congestion Respiratory: reports: cough, shortness of breath. denies: congestion Cardiovascular: reports: chest pain. denies: palpitation, edema, paroxysmal nocturnal dyspnea, orthopnea Gastrointestinal: reports: nausea. denies: vomiting, diarrhea, constipation, abdominal pain, GI bleeding Genitourinary: denies: dysuria Skin: denies: rashes, lesions, jaundice Musculoskeletal: denies: pain, tenderness, swelling Neurological: reports: weakness. denies: numbness, syncope - Vital signs BP: 147/98 HR: 101 RR: 28 Tmax: 99.8F Pox: 100% on 2L (s/p Duoneb x 1) Wt: 49 kg - Physical Exam Constitutional: NAD, awake, alert and oriented -Constitutional: thin, chronically ill-appearing HEENT: normocephalic and atraumatic, EOMI, conjunctiva clear, no scleral icterus , grossly normal hearing, MMM Neck: supple, no JVD Chest: no-tender to palpation, no lesions Heart: RRR, normal S1/S2, no murmurs/rubs/gallops, pulses present, no edema Lungs: good air movement, no retractions -Lungs: Scattered expiratory wheezing anteriorly and posteriorly. Abdomen: soft, non-tender, bowel sounds present Musculoskeletal: normal structure, normal tone Neurological: no focal deficit, normal sensation Skin: no rash/lesions, good turgor, no jaundice Heme/Lymphatic: no unusual bruising or bleeding Psychiatric: normal mood and affect FMR H&P: Results - Labs Result Diagrams: 05/30/19 04:40 05/30/19 04:40 Lab results: WBC 14.6 thou/uL (4.8-10.8) H 05/29/19 18:17 Hgb 10.0 g/dL (12.0-16.0) L 05/29/19 18:17 Hct 30.6 % (36.0-47.0) L 05/29/19 18:17 MCV 82.9 fL (78.0-98.0) 05/29/19 18:17 Plt Count 223 thou/uL (130-400) 05/29/19 18:17 Neutrophils % 83.7 % (42.0-75.0) H 05/29/19 18:17 Sodium 128 mmol/L (136-145) L 05/29/19 18:17 Potassium 5.3 mmol/L (3.5-5.1) H 05/29/19 18:17 Chloride 91 mmol/L (98-107) L 05/29/19 18:17 Carbon Dioxide 23 mmol/L (23-31) 05/29/19 18:17 BUN 32 mg/dL (9.8-20.1) H 05/29/19 18:17 Creatinine 1.29 mg/dL (0.6-1.1) H 05/29/19 18:17 Glucose 123 mg/dL (83-110) H 05/29/19 18:17 Lactic Acid 5.0 mmol/L (0.5-2.2) H* 05/29/19 18:37 Calcium 10.3 mg/dL (7.8-10.44) 05/29/19 18:17 Total Bilirubin 0.9 mg/dL (0.2-1.2) 05/29/19 18:17 AST 504 U/L (5-34) H 05/29/19 18:17 ALT 28 U/L (8-55) 05/29/19 18:17 Alkaline Phosphatase 85 U/L (40-110) 05/29/19 18:17 B-Natriuretic Peptide 388.3 pg/mL (0-100) H 05/29/19 18:17 Serum Total Protein 7.1 g/dL (6.0-8.3) 05/29/19 18:17 Albumin 4.1 g/dL (3.4-4.8) 05/29/19 18:17 - Radiology Interpretation Chest x-ray Status: report reviewed by me (RUL lung cancer with adjacent inseparable postobstructive pneumonitis/postobstructive atelectasis with little or no interval change. Small bilateral pleural effusions. The left one appears to have slightly increased in volume since prior study. Pericardial effusion. Diffuse interstitial densities in right lung may or may not represent lymphangitic carcinomatosis, no interval change. Numerous tiny bilateral noncalcified pulmonary nodules may represent pulmonary metastases.) FMR H&P: A/P - Problem List (1) COPD exacerbation Current Visit: Yes Status: Acute Code(s): J44.1 - CHRONIC OBSTRUCTIVE PULMONARY DISEASE W (ACUTE) EXACERBATION (2) Adenocarcinoma of lung Current Visit: Yes Status: Acute Code(s): C34.90 - MALIGNANT NEOPLASM OF UNSP PART OF UNSP BRONCHUS OR LUNG Qualifiers: Laterality: right Qualified Code(s): C34.91 - Malignant neoplasm of unspecified part of right bronchus or lung (3) Hyponatremia Current Visit: Yes Status: Acute Code(s): E87.1 - HYPO-OSMOLALITY AND HYPONATREMIA (4) SIRS (systemic inflammatory response syndrome) Current Visit: Yes Status: Acute Code(s): R65.10 - SIRS OF NON-INFECTIOUS ORIGIN W/O ACUTE ORGAN DYSFUNCTION (5) COURTNEY (acute kidney injury) Current Visit: Yes Status: Acute Code(s): N17.9 - ACUTE KIDNEY FAILURE, UNSPECIFIED (6) Elevated AST (SGOT) Current Visit: Yes Status: Acute Code(s): R74.0 - NONSPEC ELEV OF LEVELS OF TRANSAMNS & LACTIC ACID DEHYDRGNSE - Plan Patient is a 79 yo with PMHx of Adenocarcinoma of right lung who presents with SOB: #COPD Exacerbation -CTA pending to r/o PE, pt has known thrombus of right IJ and SVC -initial exam prior to Duoneb treatment with scattered expiratory wheezing; pt previous smoker of >20 years (quit last year) -continue Duonebs q4h with RT prn -has not been able to be set up for home oxygen via home health yet, still pending insurance per pt #Deconditioning -2-3 falls in last week -order PT/OT to eval/treat -anticipate patient may be candidate for inpatient rehab vs SNF #Adenocarcinoma of Lung, right -likely cause of patient's chest & back pain -managed by Dr. Jones, plan to consult in AM -CXR with this admission with no significant interval change #Hyponatremia -admission Na 128, will continue to monitor on AM labs #SIRS with unknown source -s/p 1 g Vancomycin and 750 mg Levaquin in ED, will plan to continue Levaquin -WBC 14.6, Lactic acid 5.0 #COURTNEY -BUN 32, Cr 1.3, CrCl 28 -s/p 1L NS in ED -monitor on AM CMP #Anemia -Hgb 10.0, stable since past admission -likely 2/2 chronic disease #Elevated AST -AST 504 (was 6 at last admission) -consider Keytruda tx as possible cause Diet: Regular VTE: SCDs, Heparin (CrCl of 28) Code status: FULL Contact Yariel at [phone] for updates Dispo: Stable, admitted to inpatient on oncology unit. CTA pending. Continue Duonebs prn for wheezing. Plan to contact Dr. Jones in AM for further recs. Anticipate LOS >48 hrs. FMR H&P: Upper Level - Plan Date/Time: 05/29/192046 IColten DO, have evaluated this patient and agree with findings/plan as outlined by Chari Duarte DO. Pertinent changes/additions are listed here. This is a 79 yo female with a pmh of Parkinson disease, atrial flutter, anxiety , HTN who presents to the ED with a cc of SOB and wheezing. She states the wheezing has been ongoing since her ER visit on 05/22 at which time she was treated with nebulizers sent home after improvement. She reports however the symptoms slowly returned. She denies cough, fever, recent travel, abdominal pain , or new weakness. He does report that she has been falling more. She does have a recent diagnosis of lung cancer and it is currently unclear if she has started chemo therapy for this. Her and her have conflicting stories. This patient was seen and discharged on 05/10/19, at which time she was treated for weakness that appeared to be associated with a right IG and SVC thrombosis. She was not deemed a candidate for thrombectomy at that time and was encouraged to seek treatment of her cancer in hopes that his would improve her symptoms. Objective: Vitals: BP 111/92, HR 98, RR 24, Temp 99.0, SpO2 97% on 2L NC, Wt 50Kg NAD: Appears in mild distress HEENT: AT/NC Cardio: Tachycardic, no murmurs Respiratory: Mild decrease in air movement, end expiratory wheezing diffusely See wedding planning internship note fore further details and management of chronic conditions Acute hypoxic respiratory failure likely 2/2 her lung adenocarcinoma and COPD exacerbation -Admit to onc -Continue breathing treatments -Consult Oncology in the AM for more definitive treatment -Pt does have new PE as well as the right IJ and SVC thrombus. These maybe contributing to her symptoms -Starting pt on therapeutic lovenox COURTNEY -Will monitor Pt meets SIRS criteria, unknown source although lungs are concerning -S/P vancomycin and levaquin in ER, will continue levaquin q48hr given her renal function -Pending procal to direct abx Code: Full Prophylaxis: therapeutic lovenox Family: None at bedside Fluids: SL Diet: Regular Disposition: DC in 1-2 days Bounce back Addendum - Attending - Attending Attestation Date/Time: 05/30/19 0903 I personally evaluated the patient and discussed the management with Dr. Duarte. See separate attestation. I agree with the History, Examination, Assessment and Plan documented above with any addition or exceptions noted below.
[2019-05-29] MEDS ORDERED: Adacel (T-DAP) 0.5 ML SYRINGE ONE (20:59)
[2019-05-29] MEDS ORDERED: Heparin 5,000 UNITS/ML VIAL SC SCH (21:00)
--- NOTE | 2019-05-29 21:17 | CT ---
CT ANGIOGRAM THORAX WITH CONTRAST: (CTA pulmonary angiogram) DATE: 05/29/2019 HISTORY: 79-year-old female with lung cancer presents with dyspnea, tachypnea, and wheezing. COMPARISON: 05/23/2019 TECHNIQUE: IV injection of iodinated contrast. Scan acquisition timing attempted to coincide with iodinated contrast bolus reaching maximal density in pulmonary arteries. 3-D MIP reconstructions. FINDINGS: There is a new finding of thrombus within a peripheral branch of the lateral basilar segment of the r ight lower lobe pulmonary artery (at least a fifth order branch, of the right main pulmonary artery. There is a is somewhat greater volume of thrombus in several branches of left posterior basilar pulmo nary artery, (at least sixth order branches of the left main pulmonary artery). No pulmonary thromboembolus in in left and right main pulmonary arteries or pulmonary trunk. There is a filling defect in right anterior main pulmonary veins centrally which may represent clot. Right upper lobe pulmonary artery and branches are narrowed by the surrounding neoplastic hilar and p erihilar tumor mass. This central tumor mass is contiguous with, and inseparable from strongly enhancing, very irregularly shaped right upper lobe central and lateral tumor mass component abutting the lateral pleural surface. These are both surrounded by infiltrative material which could represent extensions of the neoplastic tumor or postobstructive pneumonitis or atelectasis. The right mainstem bronchus, right upper lobe bronchus, bronchus intermedius, and right middle lobe b ronchus, are all narrowed by the surrounding hilar and perihilar neoplastic tumor mass. The right hilar mediastinal tumor is contiguous with, and inseparable from diffuse significant mediastinal felix gnant lymphadenopathy. The previously described 3 cm tumor mass in the far anterior medial aspect of anterior segment of rig ht upper lobe is again noted. Large number of tiny noncalcified pulmonary nodules throughout all lung mendoza bilaterally probably r epresent metastases. Small right pleural effusion is stable. There is a new small left pleural effusion. The previously demonstrated pericardial effusion has increased in volume slightly, and is moderate to large in volume. Cardiac size itself is not enlarged. No thoracic aortic dissection or aneurysm. Filling defects in the lower portion of the descending thoracic aorta, new since prior study, could r epresent unopacified blood or thrombus material. IMPRESSION: 1. Positive for subsegmental, peripheral branch pulmonary thromboembolism in bilateral lower lobes, w ith low clot burden. 2. Slight interval increase in volume of moderate to large pericardial effusion. 3. New small left pleural effusion. The small right pleural effusion is roughly stable. 4. Malignant neoplastic tumor of right hilum, mediastinum, and right upper lobe, unchanged. 5. The tumor causes narrowing of right upper lobe pulmonary artery and its branches, and right bronch i. 6. Filling defects in the right anterior pulmonary vein and inferior portion of descending thoracic a dashawn could represent thrombus material. 7. Evidence for diffuse bilateral tiny numerous pulmonary metastases.
[2019-05-29 21:58] LABS: Bilirubin Negative (Negative); Blood, Urine Negative (Negative); Clarity Clear (Clear); Glucose, Urine (Dipstick) Normal (Negative); Leukocyte Negative Leu/uL (Negative); Nitrite Negative (Negative); Protein, Urine (Dipstick) 100 mg/dL (Neg-Trace); Urobilinogen Normal mg/dL (Less than 2)
[2019-05-29 22:11] LABS: RBC/HPF None Seen HPF (0-3); Squamous Epithelial 0-3 HPF (0-3); WBC/HPF 0-3 HPF (0-3)
[2019-05-29 22:12] LABS: Bacteria/HPF 1+ HPF (None Seen)
[2019-05-29 22:16] LABS: Lactic Acid 3.7 mmol/L (0.5-2.2)
--- NOTE | 2019-05-29 22:26 | PDOC.BPN ---
- Brief Progress Note Date/Time: 05/29/195 I personally evaluated the patient and discussed the management with Dr. Duarte and Andrzej in the ER. H&P is pending. I agree with the History, Examination, Assessment and Plan as discussed. COPD exacerbation, significant lung cancer burden, and now with thrombus in pulmonary artery and thoracic aorta. Anticoags to be initiated. Considering comorbidities, her prognosis guarded. I also note on my exam that she defers to her for end of life care planning. Her desire for end of life care is to allow him to guide us through her care. He indicates she is to be full code.
[2019-05-29] MEDS ORDERED: Enoxaparin Sodium 40 MG/0.4 ML SYRINGE SC SCH (22:45)
[2019-05-30] MEDS ORDERED: Enoxaparin Sodium 60 MG/0.6 ML SYRINGE SC SCH ×3 (00:15→21:00)
[2019-05-30] MEDS: Sodium Chloride 0.9% 1,000 ML IV SCH ×2 (01:14→06:20)
[2019-05-30] MEDS: Famotidine 20 MG TAB PO SCH ×2 (01:15→10:11)
[2019-05-30] MEDS ORDERED: Melatonin 3 MG TAB PO SCH (01:15)
[2019-05-30] MEDS ORDERED: Diltiazem 125 MG in Sodium Chloride 0.9% 100 ML IVPB SCH (04:15)
--- NOTE | 2019-05-30 04:21 | PDOC.BPN ---
<Chari Duarte E - Last Filed: 05/30/19 04:14> - Brief Progress Note 05/30/2019, 0415: Was called by nursing staff at approx 0345 stating patient in Afib with RVR, rate varying from 110s to 150s. Patient confused and had pulled off oxygen for undetermined amount of time. Upon arrival patient complaining of feeling short of breath. Denies any other complaints. Patient remarked that she was started on a 4 day course of Coreg by Dr. Jones and stopped taking it this week. Unclear as to why. Exam revealed some crackles at the lung bases and scattered expiratory wheezes. Heart S1S2 normal with grade II murmur over aortic valve. No LE edema. No abdominal TTP. Bowel sounds present. Venturi mask was placed with O2 at 2L, patient sats varying from 94-99%. A 12 lead EKG was ordered, showing Afib with RVR, rate 154. Additional orders placed for ABG, Troponin, and CXR--all pending. A Diltiazem 15 mg IV bolus was given, followed by starting Diltiazem drip. Transfer orders placed to transfer patient to [facility] bed at this time. Patient's , Yariel Jacobs, was called and updated to patient's condition. All questions answered. <David Dominqiue A - Last Filed: 05/30/19 09:06> Addendum - Attending - Attending Attestation Date/Time: 05/30/19 0904 I personally evaluated the patient and discussed the management with Dr. Duarte. I was called to assess Mrs Jacobs at time of transfer from [facility] to [facility]. New onset a-fib in the context of lung cancer, COPD, and PE. Diltiazem initiated. Workup underway. Patient is feeling better with Venturi mask.
[2019-05-30 04:59] LABS: #Lymphocytes 0.5 thou/uL (1.20-3.40); #Monocytes 1.2 thou/uL (0.11-0.59); #Neutrophils 10.6 thou/uL (1.40-6.50); %Eosinophils 0.2 % (0.0-10.0); %Monocytes 9.4 % (0.0-10.0); %Neutrophils 86.4 % (42.0-75.0); Hemoglobin 9.2 g/dL (12.0-16.0); Mean Corpuscular HGB CONC 32.8 g/dL (32.0-36.0); Mean Corpuscular Hemoglobin 27.5 pg (27.0-31.0); Mean Platelet Volume 8.2 fL (7.4-10.4); Platelet Count 197 thou/uL (130-400); RBC Distribution Width 14.9 % (11.5-14.5); Red Blood Cell (RBC) Count 3.33 mill/uL (4.20-5.40); White Blood Cell (WBC) Count 12.3 thou/uL (4.8-10.8)
[2019-05-30 05:33] LABS: ALT (SGPT) 21 U/L (8-55); AST (SGOT) 283 U/L (5-34); Albumin 3.8 g/dL (3.4-4.8); Alkaline Phosphatase 78 U/L (40-110); Anion Gap 22 mmol/L (10-20); BUN (Urea Nitrogen) 30 mg/dL (9.8-20.1); Bilirubin, Total 0.9 mg/dL (0.2-1.2); Calc. Creatinine Clearance 31 mL/min (70-130); Calcium 9.4 mg/dL (7.8-10.44); Carbon Dioxide 18 mmol/L (23-31); Chloride 94 mmol/L (98-107); Estimated GFR-MDRD 44; Globulin 2.5 g/dL (2.4-3.5); Glucose 150 mg/dL (83-110); Potassium 4.9 mmol/L (3.5-5.1); Protein, Total 6.3 g/dL (6.0-8.3); Sodium 129 mmol/L (136-145)
[2019-05-30 05:44] LABS: Lactic Acid 8.8 mmol/L (0.5-2.2)
[2019-05-30] MEDS ORDERED: Acetaminophen 500 MG TAB PO PRN (06:12)
[2019-05-30] MEDS ORDERED: Benzonatate 100 MG CAP PO PRN (06:12)
[2019-05-30] MEDS ORDERED: Ibuprofen 200 MG TAB PO PRN (06:12)
[2019-05-30] MEDS ORDERED: Non-Formulary Item 1 EACH (Prochlorperazine Maleate [Prochlorperazine Maleate] 10 MG) PO PRN (06:12)
[2019-05-30] MEDS ORDERED: Prochlorperazine Maleate 5 MG TAB PO PRN (06:18)
--- NOTE | 2019-05-30 06:56 | PDOC.FM ---
- Subjective Subjective: Pt feels well this AM and is on 3 L O2. She asks if she will get to go home today. Denies pain or trouble breathing. Not currently on O2 at home and says she was going to be set up w/ home O2 in the near future. Denies leg swelling. - Objective MAR Reviewed: Yes Vital Signs & Weight: Vital Signs (12 hours) Temp Pulse Resp BP Pulse Ox 05/30/19 04:08 97.6 F 05/30/19 03:40 140 H 28 H 138/72 94 L 05/30/19 03:16 98 20 93 L 05/29/19 23:40 99 05/29/19 23:30 99 F 101 H 18 112/54 L 99 Weight Weight 49.895 kg Most Recent Monitor Data Heart Rate from ECG 92 NIBP 95/57 NIBP BP-Mean 69 Respiration from ECG 19 I&O: 05/28/19 05/29/19 05/30/19 06:59 06:59 06:59 Intake Total 155 Output Total 50 Balance 105 Result Diagrams: 05/30/19 04:40 05/30/19 04:40 Phys Exam - Physical Examination Constitutional: NAD nonlabored breathing, no wheezing, Cardiovascular: RRR (soft murmur) Gastrointestinal: soft, non-tender, no distention Musculoskeletal: no edema, pulses present Psychiatric: normal affect, A&O x 3 Deviation from normal: had some word finding difficulty this morning which she says is parkinsons Skin: no rash Dx/Plan (1) Pulmonary emboli Code(s): I26.99 - OTHER PULMONARY EMBOLISM WITHOUT ACUTE COR PULMONALE Status : Acute (2) Adenocarcinoma of lung Code(s): C34.90 - MALIGNANT NEOPLASM OF UNSP PART OF UNSP BRONCHUS OR LUNG Status: Acute Qualifiers: Laterality: right Qualified Code(s): C34.91 - Malignant neoplasm of unspecified part of right bronchus or lung (3) Elevated AST (SGOT) Code(s): R74.0 - NONSPEC ELEV OF LEVELS OF TRANSAMNS & LACTIC ACID DEHYDRGNSE Status: Acute (4) Hyponatremia Code(s): E87.1 - HYPO-OSMOLALITY AND HYPONATREMIA Status: Acute (5) SIRS (systemic inflammatory response syndrome) Code(s): R65.10 - SIRS OF NON-INFECTIOUS ORIGIN W/O ACUTE ORGAN DYSFUNCTION Status: Acute (6) GERD (gastroesophageal reflux disease) Code(s): K21.9 - GASTRO-ESOPHAGEAL REFLUX DISEASE WITHOUT ESOPHAGITIS Status: Acute - Plan Plan: Patient is a 79 yo with PMHx of Adenocarcinoma of right lung who presents with SOB: # Bilateral pulmonary emboli in setting of lung adenocarcinoma - therapeutic lovenox dosed once daily due to CrCl - supplemental O2 # A-fib w/ RVR, rate controlled, new onset - episode after admission overnight - dilt bolus, now on Diltiazem drip at 5 - placed on carvedilol at last discharge on 05/10, had 1 episode of a-flutter on that admission, has known small pericardial effusion and diastolic dysfunction per Echo on last admission - continue carvedilol 3.125 bid - consider cardiology consult # COPD Exacerbation, improved - initial exam prior to Duoneb treatment with scattered expiratory wheezing; pt previous smoker of >20 years (quit last year) - continue Duonebs q4h with RT prn - has not been able to be set up for home oxygen via home health yet, still pending insurance per pt # Deconditioning -2-3 falls in last week -order PT/OT to eval/treat -anticipate patient may be candidate for inpatient rehab vs SNF # Adenocarcinoma of Lung, right - Oncology consult placed, Dr. Jones. Appreciate recs. # Hyponatremia - admission Na 128, will continue to monitor on AM labs, appears euvolemic on exam. - DDx: SIADH, hypovolemic (though less likely since received fluid overnight and still low this AM) - Uosm, Jennie ordered, pending # SIRS with unknown source -s/p 1 g Vancomycin and 750 mg Levaquin in ED, will plan to continue Levaquin - UA w/ 1+ bacteria, possible urinary source, no suprapubic pain or dysuria # COURTNEY - gentle IV fluids # Anemia -Hgb 10.0, stable since past admission -likely 2/2 chronic disease # Elevated AST -AST 504 (was 6 at last admission) -consider Keytruda tx as possible cause vs liver mets Diet: Regular VTE: SCDs, LVX therapeutic dose but once daily 2/2 creatinine clearance Code status: FULL Contact , Yariel at [phone] for updates Dispo: Stable. Anticipate LOS >48 hrs. Addendum - Attending - Attending Attestation Date/Time: 05/30/19 4031 I personally evaluated the patient and discussed the management with Dr. Cummings. I agree with the History, Examination, Assessment and Plan documented above with any addition or exceptions noted below.
[2019-05-30] MEDS: Carbidopa/Levodopa 25-100 mg Tablet PO SCH ×4 (06:57→23:49)
--- NOTE | 2019-05-30 08:00 | RAD ---
PORTABLE CHEST 1 VIEW: DATE: 05/30/2019. TIME: 2:45 AM. HISTORY: Shortness of breath. COMPARISON: Previous day. FINDINGS/IMPRESSION: No significant interval change seen. POS: ALISSA
[2019-05-30] MEDS ORDERED: Carvedilol 3.125 MG TAB PO SCH ×4 (09:01→17:00)
[2019-05-30] MEDS: Lactated Ringer's 1,000 ML IV SCH (10:11)
[2019-05-30] MEDS: Fludrocortisone Acetate 0.1 MG TAB PO SCH (10:11)
[2019-05-30] MEDS ORDERED: Succinylcholine Chloride 20 MG/ML 10 ml SYRINGE FS ONE (10:12)
[2019-05-30] MEDS ORDERED: Glycopyrrolate 0.2 MG/ML 5 ML SYRINGE ONE (10:12)
[2019-05-30] MEDS ORDERED: PHENYLEPHRINE-NS 100 MCG/ML 10 ML SYRINGE ONE (10:12)
[2019-05-30] MEDS ORDERED: Lidocaine 1% PF 5 ML VIAL ONE (10:12)
[2019-05-30] MEDS ORDERED: CARBIDOPA PO SCH (12:00)
[2019-05-30] MEDS ORDERED: LEVODOPA PO SCH (12:00)
--- NOTE | 2019-05-30 13:12 | CON ---
DATE OF CONSULTATION: HISTORY OF PRESENT ILLNESS: The patient is a 79-year-old woman, with a history of lung carcinoma, who presented with increasing dyspnea. The patient was seen a few weeks ago with dyspnea. She was diagnosed with lung carcinoma. She was at home yesterday became acutely short of breath. The patient was brought to the hospital for further evaluation. The patient reports feeling extremely weak and dyspneic. PAST MEDICAL HISTORY: Significant for, 1. Lung carcinoma. 2. Hypertension. 3. Parkinson's. 4. GE reflux. PAST SURGICAL HISTORY: She has had hysterectomy, cholecystectomy, appendectomy, foot surgery, shoulder surgery, and cholecystectomy. SOCIAL HISTORY: Former smoker. FAMILY HISTORY: Positive family history of heart disease. ALLERGIES: SHE IS ALLERGIC TO COMBIVENT. REVIEW OF SYSTEMS: Ten-point system knows for weakening and weight loss. PHYSICAL EXAMINATION: GENERAL: A well-developed woman, in no acute distress. VITAL SIGNS: Blood pressure of 101/64. NECK: Showed no jugular venous distention. LUNGS: Coarse breath sounds bilateral. HEART: Regular rate and rhythm. Normal S1 and S2. ABDOMEN: Distended. EXTREMITIES: Showed trace edema. VASCULAR: Radial pulses are 2+. LABORATORY DATA: Sodium 129, potassium 4.9, chloride 94, bicarb 18, BUN 30, creatinine 1.2, and glucose is 150. Her white blood cell count 12.3, hemoglobin 9.2, hematocrit 27.9, and platelets are . IMAGING DATA: EKG revealed atrial fibrillation with a rapid ventricular response. Her echocardiogram revealed a very large pericardial effusion with evidence of right ventricular systolic collapse. IMPRESSION: 1. Large pericardial effusion. 2. Atrial fibrillation. 3. Lung carcinoma. 4. Parkinson disease. 5. History of tobacco abuse. PLAN: This patient presents with a large pericardial effusion, which has been markedly larger than she had previously. From a cardiac standpoint, I would hydrate this patient. We will obtain CT consultation for probable pericardial window. We will follow this patient with you through her hospitalization. Job ID: [id number]
[2019-05-30] MEDS ORDERED: CEFAZOLIN 2 GM in Premix Bag 1 BAG IVPB SCH (13:15)
--- NOTE | 2019-05-30 13:24 | CON ---
DATE OF CONSULTATION: 05/30/2019 HISTORY OF PRESENT ILLNESS: Ms. Jacobs is a 79-year-old female, recently diagnosed with small-cell lung cancer. She has had one round of chemo. She presented with shortness of breath. CT pulmonary angiogram showed extensive thromboembolic disease. She says she has been short of breath for a month. She also is found to have significant pericardial effusion. An echocardiogram is done, which shows progression of the effusion compared to several weeks ago. There is some early tamponade seen on the echocardiogram. PAST MEDICAL HISTORY: Remarkable for; 1. Episodes of syncope in the past. 2. History of Parkinson disease. 3. 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 4. History of COPD. 5. Status post hysterectomy. 6. History of cholecystectomy. 7. Appendectomy. 8. History of a colonoscopy with polyp resection. 9. History of foot surgery in the past. 10. History of supraclavicular lymph node needle aspirate. FAMILY HISTORY: Negative for lung disease in early age. REVIEW OF SYSTEMS: Otherwise negative. She wants to go home. She says she feels fine. PHYSICAL EXAMINATION: VITAL SIGNS: She is afebrile. She is on 3 L cannula. Blood pressure is 101/64 , heart rate is 88, respiratory rates in the teens. She has a nasal cannula on. NECK: Supple. Trachea is in the midline. LUNGS: Clear. HEART: Regular rhythm. Distant S1 and S2. ABDOMEN: Soft and nontender. EXTREMITIES: Without asymmetry or edema. IMPRESSION: 1. Non-small cell lung cancer by lymph node biopsy, right supraclavicular, PD- L1 of 50%, status post Keytruda reportedly. 2. Early tamponade, should benefit from a window. 3. Thromboembolic disease, does not appear that she was sent home on anticoagulants on last admission. 4. History of syncope, which may or may not be related to thromboembolic disease , but it is chronic. 5. History of Parkinson disease. 6. Reflux disease. 7. Deconditioning, ambulating with a walker. PLAN: Pericardial window, resumption of anticoagulation after that. Continue with treatment. TIME SPENT WITH PATIENT: 50 minutes consult, 50% of the time was spent on the unit coordinating care. Job ID: [id number] MTDD
[2019-05-30] MEDS ORDERED: EPINEPHrine 1 MG/ML AMP ONE (13:42)
[2019-05-30] MEDS ORDERED: Bupivacaine PF 0.5% 30 ML VIAL ONE (13:42)
[2019-05-30] MEDS ORDERED: Ketamine 50 MG/ML (10ML VIAL) ONE (13:44)
[2019-05-30] MEDS ORDERED: Midazolam HCl 2 mg/2 ml Vial ONE (13:44)
--- NOTE | 2019-05-30 13:44 | CON ---
DATE OF CONSULTATION: 05/30/2019 HISTORY OF PRESENT ILLNESS: Ms. 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 She had superior vena caval syndrome. She had her 1st dose of Keytruda last . She presented with increasing shortness of breath and work of breathing through the Emergency Department. Echocardiogram has shown large pericardial effusion with early tamponade. I have been asked to see her to perform a pericardial window. She had a CT scan performed at admission, which shows subsegmental bilateral pulmonary emboli with a large pericardial effusion, a small left pleural effusion. The tumor involves her right upper lobe and hilum. Currently, she is sitting upright in bed, in no distress. PAST MEDICAL HISTORY: 1. 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 2. Superior vena caval syndrome. 3. Parkinson's. 4. GERD. 5. COPD. PAST SURGICAL HISTORY: 1. Hysterectomy. 2. Cholecystectomy. 3. Appendectomy. 4. Right foot surgery. 5. Colonoscopy. SOCIAL HISTORY: She quit smoking about a year ago. She does not use alcohol, drugs, or other substances. She lives at home with her . REVIEW OF SYSTEMS: A 10-point review of systems is performed and is negative except as above. PHYSICAL EXAMINATION: GENERAL: This is a well-developed, well-nourished woman, who is on 3 L of nasal cannula with oxygen saturations in the mid 90s. VITAL SIGNS: Temperature is 98.6, pulse is 88 and regular, and blood pressure is 101/64. LUNGS: Clear bilaterally. HEART: Rhythm is regular. ABDOMEN: Soft and nontender. EXTREMITIES: No edema. ASSESSMENT AND PLAN: I have reviewed her echo and CT scan, and she has a large pericardial effusion with early tamponade. Plan is for pericardial window as soon as OR is available. Job ID: [id number]
[2019-05-30] MEDS ORDERED: Phenylephrine 10 MG/ML VIAL ONE (13:45)
[2019-05-30] MEDS ORDERED: Famotidine/PF 20 mg/2ml Vial ONE (13:45)
[2019-05-30] MEDS ORDERED: Heparin 5,000 UNITS/ML VIAL ONE (14:10)
[2019-05-30] MEDS ORDERED: Fentanyl 100 MCG/2 ML VIAL ONE (14:20)
[2019-05-30] MEDS ORDERED: traMADol HCl 50 MG TAB PO PRN (15:16)
[2019-05-30] MEDS ORDERED: Fentanyl 100 MCG/2 ML VIAL SLOW IVP PRN (15:16)
--- NOTE | 2019-05-30 15:27 | OP ---
DATE OF PROCEDURE: 05/30/2019 PREOPERATIVE DIAGNOSIS: Large pericardial effusion with early tamponade physiology on echocardiogram. POSTOPERATIVE DIAGNOSIS: Large pericardial effusion with early tamponade physiology on echocardiogram. PROCEDURE PERFORMED: Pericardial window. ANESTHESIA: General endotracheal. ESTIMATED BLOOD LOSS: Minimal. DRAIN: 19-Swiss Rajan. FINDINGS: 700 mL of bloody fluid under pressure with return of normal hemodynamics after drainage. DESCRIPTION OF PROCEDURE: After consent was obtained, the patient was brought to the operating room, placed in supine position on the operating table. Appropriate central line and monitors were placed, and general endotracheal anesthesia was induced. Chest was prepped and draped in usual sterile fashion. Skin incision was made over the xiphoid. Xiphoid was resected. The pericardium was identified and sharply entered. Fluid was evacuated and sent for cytology. A piece of pericardium was taken and sent for pathology. 700 mL of bloody fluid was evacuated. Once the pressurized fluid was removed, hemodynamics returned to normal. A 19-Swiss drain was placed. 0.5% Marcaine with epinephrine was infused around the incision. Wounds were then closed in layers, and Dermabond applied to the skin. The patient tolerated the procedure well, was transferred to the recovery room in stable condition. Needle, sponge, and instrument counts were all reported as correct at the end of the procedure. Job ID: [id number]
[2019-05-30] MEDS ORDERED: SUGAMMADEX SODIUM 200 MG/2 ML VIAL ONE (15:39)
--- NOTE | 2019-05-30 17:45 | PDOC.BPN ---
- Brief Progress Note Received page from HARRIET Beard; Echo showing increased pleural effusion and pt having symptoms of SOB. Called Dr. Burris who read the Echo and recommends consult along w/ CV Surg consult to consider pericardial operation to relieve early signs of tamponade. Pericardial window performed and 700 mL of bloody fluid released under pressure. Spoke w/ Dr. Sommer who recommends resuming LVX for anticoagulation in the AM.
[2019-05-30] MEDS: Carvedilol 3.125 MG TAB PO SCH (17:53)
[2019-05-30] MEDS: Melatonin 3 MG TAB PO SCH (20:27)
[2019-05-31] MEDS: Lactated Ringer's 1,000 ML IV SCH (02:28)
[2019-05-31 03:31] LABS: Hemoglobin 9.2 g/dL (12.0-16.0); Platelet Count 145 thou/uL (130-400)
[2019-05-31] MEDS: Carbidopa/Levodopa 25-100 mg Tablet PO SCH ×4 (05:57→23:37)
--- NOTE | 2019-05-31 06:01 | PDOC.FM ---
- Subjective Subjective: POD # 1 pericardial window. Pt was feeling cold and SOB prior to procedure. Now feels warm and less labored w/ breathing. Denies any chest pain or heart palpitations currently. Telemetry showing NSR at rate of 81. - Objective MAR Reviewed: Yes Vital Signs & Weight: Vital Signs (12 hours) Temp 05/31/19 03:31 98.1 F 05/30/19 23:27 98.6 F 05/30/19 19:34 98.8 F Weight Admit Weight 52.072 kg Weight 49.305 kg Most Recent Monitor Data Heart Rate from ECG 81 NIBP 111/66 NIBP BP-Mean 81 Respiration from ECG 21 SpO2 100 I&O: 05/29/19 05/30/19 05/31/19 06:59 06:59 06:59 Intake Total 155 1750 Output Total 50 185 Balance 105 1565 Result Diagrams: 05/31/19 03:19 05/31/19 07:21 Phys Exam - Physical Examination Constitutional: NAD (appears euvolemic, no pitting edema in extremity, no lung crackles) HEENT: sclera anicteric Respiratory: wheezing present (diffuse end-expiratory wheezing throughout all lung mendoza, on 2L O2) Cardiovascular: RRR, no significant murmur (distant and muffled heart sounds) Gastrointestinal: soft dressing in place w/ DONNIE drain of serosanguinous fluid, dressing not disturb Musculoskeletal: no edema, pulses present (and weak, 1+) Psychiatric: normal affect, A&O x 3 Skin: no rash Dx/Plan (1) Pulmonary emboli Code(s): I26.99 - OTHER PULMONARY EMBOLISM WITHOUT ACUTE COR PULMONALE Status : Acute (2) Adenocarcinoma of lung Code(s): C34.90 - MALIGNANT NEOPLASM OF UNSP PART OF UNSP BRONCHUS OR LUNG Status: Acute Qualifiers: Laterality: right Qualified Code(s): C34.91 - Malignant neoplasm of unspecified part of right bronchus or lung (3) Elevated AST (SGOT) Code(s): R74.0 - NONSPEC ELEV OF LEVELS OF TRANSAMNS & LACTIC ACID DEHYDRGNSE Status: Acute (4) Hyponatremia Code(s): E87.1 - HYPO-OSMOLALITY AND HYPONATREMIA Status: Acute (5) SIRS (systemic inflammatory response syndrome) Code(s): R65.10 - SIRS OF NON-INFECTIOUS ORIGIN W/O ACUTE ORGAN DYSFUNCTION Status: Acute (6) GERD (gastroesophageal reflux disease) Code(s): K21.9 - GASTRO-ESOPHAGEAL REFLUX DISEASE WITHOUT ESOPHAGITIS Status: Acute - Plan Plan: Patient is a 79 yo with PMHx of Adenocarcinoma of right lung who presents with SOB: # Bilateral pulmonary emboli in setting of lung adenocarcinoma - therapeutic lovenox dosed once daily due to CrCl. Consider increasing to BID as COURTNEY continues to improve # Pericardial effusion - s/p pericardial window 05/[address] Sommer - pericardial cytology pending. - appreciate CV surg recs - appreciate cardiology recs. # A-fib w/ RVR, now in sinus rhythm s/p diltiazem drip/bolus - continue carvedilol 3.125 bid # COPD Exacerbation, improved - pt previous smoker of >20 years (quit last year) - continue Duonebs q4h with RT prn - has not been able to be set up for home oxygen via home health yet, still pending insurance per pt # Deconditioning - 2-3 falls in last week - order PT/OT to eval/treat - inpatient rehab vs SNF vs hospice - mighty shakes and dietary supplementation ordered. # Adenocarcinoma of Lung, right - Oncology consult placed, Dr. Jones. Appreciate recs. # Hyponatremia - improved - DDx: SIADH, hypovolemic (though less likely since received fluid overnight and still low this AM) - appears euvolemic Serum osm calc 274, Urine osm >500, Urine sodium < 20. # SIRS with unknown source - vital signs most likely due to PEs. d/c antibiotics. - blood culture, urine culture pending # COURTNEY, improving - gentle IV fluids # Anemia -likely 2/2 chronic disease, stable # Elevated AST -AST 504 (was 6 at last admission) -consider Keytruda tx as possible cause vs liver mets Diet: Regular Fluids: LR at 75 VTE: SCDs, LVX therapeutic dose but once daily 2/2 creatinine clearance Code status: FULL Contact , Yariel at [phone] for updates Dispo: Stable. Anticipate LOS >48 hrs. Addendum - Attending - Attending Attestation Date/Time: 05/31/19 5409 I personally evaluated the patient and discussed the management with Dr. Cummings. I agree with the History, Examination, Assessment and Plan documented above with any addition or exceptions noted below. Patient improved. S/P pericardial window. Await further CV surg recs for custodial mgmt. Anticoagulation restarted.
[2019-05-31 07:43] LABS: Anion Gap 12 mmol/L (10-20); BUN (Urea Nitrogen) 32 mg/dL (9.8-20.1); Calc. Creatinine Clearance 37 mL/min (70-130); Calcium 8.8 mg/dL (7.8-10.44); Carbon Dioxide 26 mmol/L (23-31); Chloride 98 mmol/L (98-107); Estimated GFR-MDRD 55; Glucose 88 mg/dL (83-110); Potassium 4.1 mmol/L (3.5-5.1); Sodium 132 mmol/L (136-145)
[2019-05-31 07:45] LABS: Lactic Acid 1.9 mmol/L (0.5-2.2)
--- NOTE | 2019-05-31 08:14 | RAD ---
CHEST 1 VIEW: Date: 05/31/2019 INDICATION: History of post pericardial window. COMPARISON: Prior exam dated 05/30/2019. FINDINGS: There is worsening air space opacity within the right perihilar regions with a small right-sided pleu ral effusion. There is a tiny left pleural effusion. There is cardiomegaly and pulmonary vascular con gestion with interstitial edema. No definite pneumothorax is evident. Chronic osseous changes are sim ilar appearing. IMPRESSION: 1. Worsening air space disease of the right lung. Findings may represent worsening asymmetric edema or pneumonia. 2. Cardiomegaly with mild pulmonary vascular congestion and small bilateral pleural effusions may re flect a component of CHF. 3. No pneumothorax. POS: BH
[2019-05-31] MEDS ORDERED: methylPREDNISolone Sod Succ/PF 125 MG/2 ML VIAL IVP SCH (08:15)
[2019-05-31] MEDS: Carvedilol 3.125 MG TAB PO SCH ×2 (08:16→18:03)
[2019-05-31] MEDS: Fludrocortisone Acetate 0.1 MG TAB PO SCH (08:17)
[2019-05-31] MEDS: Famotidine 20 MG TAB PO SCH (08:17)
[2019-05-31] MEDS: Sodium Chloride 0.45% 1,000 ML IV SCH ×2 (08:27→22:25)
[2019-05-31] MEDS: guaiFENesin ER 600 MG TAB PO SCH ×2 (08:27→20:39)
--- NOTE | 2019-05-31 08:56 | PRG ---
DATE OF SERVICE: 05/31/2019 SUBJECTIVE AND OBJECTIVE: Farhana Jacobs has no complaints. She says she feels 100% better than yesterday. She is afebrile. She is on a cannula. She has such a weak cough. She has sputum caught in her upper airway quite clear. Lungs are remarkable for mild rhonchi, but confined to the upper chest. Heart, regular rhythm. Abdomen is soft. Extremities, without edema. IMPRESSION: 1. Advanced stage IV non-small cell lung cancer. 2. Deconditioning. 3. Thromboembolic disease. 4. Status post pericardial window. 5. Probable chronic obstructive pulmonary disease. PLAN: 1. Continue nebulizer medicines, Mucinex, one dose of steroids IV. 2. Probably reasonable to switch her to Eliquis at this point. Job ID: [id number]
[2019-05-31] MEDS ORDERED: Enoxaparin Sodium 60 MG/0.6 ML SYRINGE SC SCH ×4 (09:00→21:00)
[2019-05-31] MEDS ORDERED: Enoxaparin Sodium 30 MG/0.3 ML SYRINGE SC SCH (09:30)
--- NOTE | 2019-05-31 15:34 | CON ---
DATE OF CONSULTATION: REASON FOR CONSULTATION: Lung cancer. HISTORY OF PRESENT ILLNESS: A 79-year-old female with stage IV lung cancer, presenting to the hospital with increasing shortness of breath over the past couple of days. She had called my nurse practitioner, Zaria Ceja, Wednesday morning at 4:00 a.m., complaining of shortness of breath and is barely able to speak in sentences and she was advised to go to the ER. This did not occur at that time and eventually the next day did present to the hospital. She had a CT angio of the chest on arrival to the hospital, which showed subsegmental peripheral branch PE in bilateral lower lobes and potential thrombus in the right anterior pulmonary vein and descending thoracic aorta along with known metastatic lung cancer in the chest and a [id number] pericardial effusion. She then had an echocardiogram that showed a large pericardial effusion and findings consistent with early tamponade. She has since received a pericardial window with Dr. Sommer and her shortness of breath has markedly improved, but some does remain. She is currently saturating 100% on 2 L by nasal cannula. Regarding her cancer history, she was first noted to have lung cancer in November of 2018, however, she did not pursue any workup. At that time, she was more worried with her Parkinson's disease. She eventually presented with worsening symptoms in the beginning of last month and had a PET scan that showed metastatic disease in the chest only along with supraclavicular lymphadenopathy and right adrenal metastasis. She had a supraclavicular lymph node biopsy on May 08 that showed adenocarcinoma, PD-L1 at 50% and so she was started on single agent Keytruda and received her first dose last on May 24. REVIEW OF SYSTEMS: Ten-point review of systems negative except as per HPI. PAST MEDICAL HISTORY: Parkinson's disease, lung cancer, and atrial fibrillation. SOCIAL HISTORY: Former smoker. Lives with CURRENT MEDICATIONS: Reviewed. ALLERGIES: COMBIVENT, UNKNOWN REACTION. PHYSICAL EXAMINATION: VITAL SIGNS: Temperature 98.0, pulse 79, respirations 22, saturating 95% to 100 % on 2 L by nasal cannula, and blood pressure 103/59. GENERAL APPEARANCE: The patient is sitting up in bed, in no acute distress. CARDIAC: No tachycardia noted. RESPIRATIONS: Nonlabored. The patient is able to speak in full sentences, but after conversation, does appear slightly winded. NEUROLOGIC: Cranial nerves II through XII are grossly intact. PSYCHIATRIC: Awake, alert, and oriented x3. EXTREMITIES: Moves all extremities. LABORATORY DATA: White blood cells 12.3, hemoglobin 9.2, and platelets 197. Sodium 132, potassium 4.1, BUN 32, and creatinine 0.98. IMAGING DATA: Echocardiogram and CT angio of the chest as per HPI. ASSESSMENT AND PLAN: A 79-year-old female with stage IV adenocarcinoma of the lung, currently on Keytruda, presenting to the hospital with worsening shortness of breath, found to have large pericardial effusion and bilateral pulmonary embolisms. She is status post pericardial window and pathology is currently pending. However, I do suspect this will probably be a malignant effusion. She is currently on Lovenox for her PE. However, this likely will be transitioned over to Eliquis if no more procedures are planned for the next couple of days. Regarding her lung cancer, she has only received one dose of immune therapy 2 days ago and will take 2 to 3 months to see a response with immune therapy. She has a poor performance status, however, immune therapy can still be given as opposed to chemotherapy. The patient continues to improve. Hopefully, she can be discharged home with home oxygen if needed and follow up with me in clinic for Keytruda. Her daughter and had called my clinic the day before, wondering about potential hospice situation for her and when I broached the subject with her, she said she is not interested in that and wants to pursue complete treatment at this time. We will follow her hospital course along with you. Job ID: [id number] MTDD
[2019-05-31] MEDS: Melatonin 3 MG TAB PO SCH (20:39)
[2019-06-01 03:23] LABS: Hemoglobin 9.2 g/dL (12.0-16.0); Platelet Count 160 thou/uL (130-400)
[2019-06-01] MEDS: Carbidopa/Levodopa 25-100 mg Tablet PO SCH ×4 (05:23→23:26)
--- NOTE | 2019-06-01 07:33 | PDOC.FM ---
- Subjective Subjective: POD #2 from pericardial window. DONNIE drain output decreased from yesterday; total of 65 mL out in last 24 hours. Pt is feeling better from respiratory standpoint. Remains on 2L NC. Complains today of short term memory loss and wishes she could remember better. Also notes hands shaking some today. Per RN pt has nondisturbing hallucinations and is aware she is hallucinating. E.g. is caterpillar in her bed. - Objective MAR Reviewed: Yes Vital Signs & Weight: Vital Signs (12 hours) Temp Pulse Resp Pulse Ox 06/01/19 07:18 98.0 F 06/01/19 06:26 98 06/01/19 06:24 100 16 98 06/01/19 03:59 97.9 F 06/01/19 02:06 86 17 97 05/31/19 23:51 97.6 F 05/31/19 22:01 81 21 H 98 05/31/19 20:00 97.7 F 99 Weight Admit Weight 52.072 kg Weight 49.941 kg Most Recent Monitor Data Heart Rate from ECG 92 NIBP 118/61 NIBP BP-Mean 80 Respiration from ECG 22 SpO2 98 I&O: 05/31/19 06/01/19 06/02/19 06:59 06:59 06:59 Intake Total 2890 2640 Output Total 255 740 Balance 2635 1900 Result Diagrams: 06/01/19 03:11 06/01/19 03:11 Phys Exam - Physical Examination Constitutional: NAD HEENT: sclera anicteric Respiratory: no wheezing, clear to auscultation bilateral Cardiovascular: RRR, no significant murmur (NSR on telemetry) Gastrointestinal: no distention Psychiatric: normal affect, A&O x 3 Dx/Plan (1) Pulmonary emboli Code(s): I26.99 - OTHER PULMONARY EMBOLISM WITHOUT ACUTE COR PULMONALE Status : Acute (2) Adenocarcinoma of lung Code(s): C34.90 - MALIGNANT NEOPLASM OF UNSP PART OF UNSP BRONCHUS OR LUNG Status: Acute Qualifiers: Laterality: right Qualified Code(s): C34.91 - Malignant neoplasm of unspecified part of right bronchus or lung (3) Elevated AST (SGOT) Code(s): R74.0 - NONSPEC ELEV OF LEVELS OF TRANSAMNS & LACTIC ACID DEHYDRGNSE Status: Acute (4) Hyponatremia Code(s): E87.1 - HYPO-OSMOLALITY AND HYPONATREMIA Status: Acute (5) SIRS (systemic inflammatory response syndrome) Code(s): R65.10 - SIRS OF NON-INFECTIOUS ORIGIN W/O ACUTE ORGAN DYSFUNCTION Status: Acute (6) GERD (gastroesophageal reflux disease) Code(s): K21.9 - GASTRO-ESOPHAGEAL REFLUX DISEASE WITHOUT ESOPHAGITIS Status: Acute - Plan Plan: Patient is a 79 yo with PMHx of Adenocarcinoma of right lung who presents with SOB: # Bilateral pulmonary emboli in setting of lung adenocarcinoma - therapeutic lovenox dosed at 1.5mg/kg once daily. Kidney function improved. - Pt 50kg -> 75mg SC in AM. Anti-10a level at 1300 today to determine if therapeutic. # Pericardial effusion - s/p pericardial window 05/[address] Sommer - pericardial cytology pending. - appreciate CV surg recs. Await prison recs with regards to DONNIE drain and home drain mgmt. # A-fib w/ RVR, now in sinus rhythm s/p diltiazem drip/bolus - continue carvedilol 3.125 bid - appreciate cardiology recs. If returns to a-fib, Dr. Burris would start amiodarone. Pt has been in Sinus Rhythm. # COPD Exacerbation, improved - pt previous smoker of >20 years (quit last year) - continue Duonebs q4h with RT prn - Home Health w/ [facility] and Home O2 pending insurance. O2 Sat and progress note in chart completed. Reason for home O2 is COPD and lung adenocarcinoma. - Pulmonology following. Appreciate recs. # Deconditioning - PT/OT to eval/treat - mighty shakes and dietary supplementation ordered. # Adenocarcinoma of Lung, right - Oncology consult placed, Dr. Jones. Appreciate recs. - Will continue to follow outpatient. Will resume Keytruda as indicated, possibly in 2-3 months. Pt desires to continue treatment. # Hyponatremia - improved - DDx: most likely 2/2 hypovolemia/dehydration. - Has improved w/ fluids. Serum osm calc 274, Urine osm >500, Urine sodium < 20. # COURTNEY, improving - gentle IV fluids, continue. # Anemia -likely 2/2 chronic disease, stable # Elevated AST -consider Keytruda tx as possible cause vs liver mets # Hx of Parkinsons - may have signs of Parkinsons dementia. Diet: Regular Fluids: NS at 75 VTE: SCDs, LVX therapeutic Code status: FULL Contact , Yariel at [phone] for updates Dispo: Stable. Anticipate LOS >48 hrs. Addendum - Attending - Attending Attestation Date/Time: 06/01/19 1102 I personally evaluated the patient and discussed the management with Dr. Cummings. I agree with the History, Examination, Assessment and Plan documented above with any addition or exceptions noted below.
[2019-06-01] MEDS: Carvedilol 3.125 MG TAB PO SCH ×2 (08:42→17:18)
[2019-06-01] MEDS: Famotidine 20 MG TAB PO SCH (08:43)
[2019-06-01] MEDS: Fludrocortisone Acetate 0.1 MG TAB PO SCH (08:43)
[2019-06-01] MEDS: guaiFENesin ER 600 MG TAB PO SCH ×2 (08:43→20:17)
[2019-06-01] MEDS ORDERED: Enoxaparin Sodium 80 MG/0.8 ML SYRINGE SC SCH (09:00)
--- NOTE | 2019-06-01 11:27 | PDOC.MOPN ---
Interval History: feels better today. denies SOB - Vital Signs Vital Signs: Vital Signs (12 hours) Temp Pulse Resp Pulse Ox 06/01/19 11:22 97.4 F L 06/01/19 10:57 90 23 H 97 06/01/19 08:00 95 06/01/19 07:18 98.0 F 06/01/19 06:26 98 06/01/19 06:24 100 16 98 06/01/19 03:59 97.9 F 06/01/19 02:06 86 17 97 05/31/19 23:51 97.6 F Weight Admit Weight 114 lb 12.8 oz Weight 110 lb 1.6 oz Most Recent Monitor Data Heart Rate from ECG 93 NIBP 87/52 NIBP BP-Mean 63 Respiration from ECG 20 SpO2 83 - Physical Exam General: Alert HEENT: Atraumatic, PERRLA, EOMI, Mucous membr. moist/pink Lungs: Other (diminished) Cardiovascular: Regular rate Abdomen: Normal bowel sounds Extremities: No clubbing, No cyanosis, No edema, Normal pulses, No tenderness/ swelling Neurological: Normal speech Psych/Mental Status: Mental status NL - Labs Result Diagrams: 06/01/19 03:11 06/01/19 03:11 Lab results: Laboratory Results - last 24 hr 06/01/19 03:11: Hgb 9.2 L, Hct 28.1 L, Plt Count 160 06/01/19 03:11: Creatinine 0.75, Estimated GFR (MDRD) 75 Status: lab reviewed by me A/P - Problem (1) Pericardial effusion Current Visit: Yes Code(s): I31.3 - PERICARDIAL EFFUSION (NONINFLAMMATORY) Status: Acute (2) Adenocarcinoma of lung Current Visit: Yes Code(s): C34.90 - MALIGNANT NEOPLASM OF UNSP PART OF UNSP BRONCHUS OR LUNG Status: Acute Qualifiers: Laterality: right Qualified Code(s): C34.91 - Malignant neoplasm of unspecified part of right bronchus or lung (3) Pulmonary emboli Current Visit: Yes Code(s): I26.99 - OTHER PULMONARY EMBOLISM WITHOUT ACUTE COR PULMONALE Status: Acute - Plan Plan: Continue supportive care, PT wants to continue treatment recommend DNAR home when stable.
[2019-06-01] MEDS: Sodium Chloride 0.45% 1,000 ML IV SCH ×2 (12:17→23:40)
--- NOTE | 2019-06-01 14:26 | PRG ---
DATE OF SERVICE: 06/01/2019 SUBJECTIVE: Farhana Jacobs wants to go home this evening. She says the drain is scheduled to be removed tonight. OBJECTIVE: VITAL SIGNS: Heart rates in the 90s, blood pressure 96/53, respiratory rates in the teens. GENERAL: She is talking in complete sentences. LUNGS: Clear. HEART: Regular rhythm. ABDOMEN: Soft. LABORATORY DATA: Hemoglobin is 9.2. Sodium 132, potassium 4.1, chloride 98, bicarb 26 yesterday. creatinine is 0.75 today. INR is 1.3 on the . IMPRESSION: Status post pericardial window semi-emergently with adenocarcinoma in the pericardial fluid. She did have early tamponade. I do not feel she is capable of managing a drain at home, so she should stay in the hospital in my opinion until the drain can be removed. She will need to be gradually switched to p.o. anticoagulants for her subacute/chronic thromboembolic disease. Lovenox is appropriate for now since that is partially reversible. Job ID: [id number]
[2019-06-01 16:15] VITALS: BP 108/54
[2019-06-01] MEDS: Apixaban 5 MG TAB PO SCH (20:16)
[2019-06-01] MEDS: Melatonin 3 MG TAB PO SCH (20:17)
[2019-06-02 03:24] LABS: Hemoglobin 8.7 g/dL (12.0-16.0); Platelet Count 150 thou/uL (130-400)
[2019-06-02] MEDS: Carbidopa/Levodopa 25-100 mg Tablet PO SCH ×2 (06:36→13:42)
--- NOTE | 2019-06-02 07:38 | PDOC.FM ---
- Subjective Subjective: Patient is sleeping comfortably this morning. Denies pain. DONNIE drain has been removed. - Objective MAR Reviewed: Yes Vital Signs & Weight: Vital Signs (12 hours) Temp Pulse Resp Pulse Ox 06/02/19 07:29 97.2 F L 06/02/19 06:24 95 06/02/19 06:22 83 20 95 06/02/19 03:31 97.4 F L 06/01/19 23:25 97 06/01/19 23:24 98.3 F 06/01/19 20:00 98 06/01/19 19:53 98 06/01/19 19:52 94 24 H 98 Weight Admit Weight 52.072 kg Weight 49.941 kg Most Recent Monitor Data Heart Rate from ECG 85 NIBP 143/83 NIBP BP-Mean 103 Respiration from ECG 18 SpO2 98 I&O: 06/01/19 06/02/19 06/03/19 06:59 06:59 06:59 Intake Total 2640 2256 Output Total 740 305 Balance 1900 1951 Result Diagrams: 06/02/19 03:04 06/02/19 03:04 Phys Exam - Physical Examination Constitutional: NAD Respiratory: no wheezing mild rhonchi bilaterally Cardiovascular: RRR, no significant murmur Gastrointestinal: soft, non-tender Dx/Plan (1) Pulmonary emboli Code(s): I26.99 - OTHER PULMONARY EMBOLISM WITHOUT ACUTE COR PULMONALE Status : Acute (2) Adenocarcinoma of lung Code(s): C34.90 - MALIGNANT NEOPLASM OF UNSP PART OF UNSP BRONCHUS OR LUNG Status: Acute Qualifiers: Laterality: right Qualified Code(s): C34.91 - Malignant neoplasm of unspecified part of right bronchus or lung (3) Elevated AST (SGOT) Code(s): R74.0 - NONSPEC ELEV OF LEVELS OF TRANSAMNS & LACTIC ACID DEHYDRGNSE Status: Acute (4) Hyponatremia Code(s): E87.1 - HYPO-OSMOLALITY AND HYPONATREMIA Status: Acute (5) SIRS (systemic inflammatory response syndrome) Code(s): R65.10 - SIRS OF NON-INFECTIOUS ORIGIN W/O ACUTE ORGAN DYSFUNCTION Status: Acute (6) GERD (gastroesophageal reflux disease) Code(s): K21.9 - GASTRO-ESOPHAGEAL REFLUX DISEASE WITHOUT ESOPHAGITIS Status: Acute - Plan Plan: Patient is a 79 yo with PMHx of Adenocarcinoma of right lung who presents with SOB: # Bilateral pulmonary emboli in setting of lung adenocarcinoma - Per Onc, eliquis recommended. - anti-Xa level sub-therapeutic yesterday. Started eliquis last night. # Malignant Pericardial effusion - s/p pericardial window 05/[address] Sommer - pericardial cytology showing lung adenocarcinoma - appreciate CV surg recs. Have removed drain. # A-fib w/ RVR, now in sinus rhythm s/p diltiazem drip/bolus - continue carvedilol 3.125 bid - appreciate cardiology recs. If returns to a-fib, Dr. Burris would start amiodarone. Pt has been in Sinus Rhythm. # COPD Exacerbation, improved - Home Health w/ [facility] and Home O[facility] pending insurance. Form completed on chart. - Pulmonology following. Appreciate recs. # Deconditioning - PT/OT to eval/treat - mighty shakes and dietary supplementation ordered. # Adenocarcinoma of Lung, right - Oncology consult placed, Dr. Jones. Appreciate recs. - Will continue to follow outpatient. Will resume Keytruda as indicated, possibly in 2-3 months. Pt desires to continue treatment. # Hyponatremia - improved - DDx: most likely 2/2 hypovolemia/dehydration. # COURTNEY, improved # Anemia -likely 2/2 chronic disease, stable # Elevated AST -consider Keytruda tx as possible cause vs liver mets # Hx of Parkinsons - may have signs of Parkinsons dementia. Diet: Regular Fluids: NS at 75 VTE: SCDs, LVX therapeutic Code status: FULL Contact , Yariel at [phone] for updates Dispo: Stable. Anticipate LOS >48 hrs. Once approved for home O2, patient can likely be discharged today. Addendum - Attending - Attending Attestation Date/Time: 06/02/19 0665 I personally evaluated the patient and discussed the management with Dr. Cummings. I agree with the History, Examination, Assessment and Plan documented above with any addition or exceptions noted below. Patient improved. DONNIE drain removed, on Eliquis for PE. Stable for discharge.
[2019-06-02] MEDS: guaiFENesin ER 600 MG TAB PO SCH (08:17)
[2019-06-02] MEDS: Carvedilol 3.125 MG TAB PO SCH (08:17)
[2019-06-02] MEDS: Fludrocortisone Acetate 0.1 MG TAB PO SCH (08:17)
[2019-06-02] MEDS: Apixaban 5 MG TAB PO SCH (08:17)
[2019-06-02] MEDS: Famotidine 20 MG TAB PO SCH (08:17)
--- NOTE | 2019-06-02 08:57 | PRG ---
DATE OF SERVICE: 06/02/2019 SUBJECTIVE: Ms. Jacobs is confused today. She knew she is in [facility], but did not know what city. OBJECTIVE: VITAL SIGNS: She is afebrile, heart rate 70, respiratory rate is 20, oximetry is 95% on 2 L, blood pressure 136/76. LUNGS: Unchanged. HEART: Unchanged. ABDOMEN: Unchanged. Pericardial fluid was positive for adenocarcinoma. IMPRESSIONS: 1. Status post early tamponade with malignant pericardial effusion. 2. Blood loss anemia combined with anemia of chronic disease. PLAN: Continue supportive care. She still has a drain in place. Pericardial drain drained 25 mL reportedly over the previous 24 hours, down from 65 mL yesterday and 255 mL the day before. Other problems include thromboembolic disease, on adjusted dose of Lovenox. At some point, she will need to be converted to oral medication. I suspect she has some degree of early dementia leading to her encephalopathy while she is in the hospital. She cannot go home with a drain in my opinion. She cannot care for this. We will continue supportive care. Job ID: [id number]
[2019-06-02] MEDS: Sodium Chloride 0.45% 1,000 ML IV SCH (11:43)
[2019-06-02 14:55] VITALS: BMI 21.7
[2019-06-02 15:39] VITALS: TEMP 97.2
[2019-06-09] MEDS ORDERED: Apixaban 5 MG TAB PO SCH (09:00)
== END 2019-06-02 15:56 | disposition home health service (06) | DRG 163 ==
LOC: ERS 17:59 → ONC 19:43 → IMCU/EMU 05-30 04:14
PROVIDERS: ADMIT Family Medicine; ATTEND Family Medicine
PROC: 0W9D00Z Drainage of Pericardial Cavity with Drainage Device, Open Approach (ICD-10-PCS; principal; 2019-05-30)
DX: C34.91 Malignant neoplasm of unspecified part of right bronchus or lung (principal); I26.99 Other pulmonary embolism without acute cor pulmonale; J96.01 Acute respiratory failure with hypoxia; I31.3 Pericardial effusion (noninflammatory); J44.1 Chronic obstructive pulmonary disease with (acute) exacerbation; E87.1 Hypo-osmolality and hyponatremia; R65.10 Systemic inflammatory response syndrome (SIRS) of non-infectious origin without acute organ dysfunction; N17.9 Acute kidney failure, unspecified; J90 Pleural effusion, not elsewhere classified; D62 Acute posthemorrhagic anemia; I31.4 Cardiac tamponade; G20 Parkinson's disease; K21.9 Gastro-esophageal reflux disease without esophagitis; R74.0 Nonspecific elevation of levels of transaminase and lactic acid dehydrogenase [LDH]; R53.81 Other malaise; I10 Essential (primary) hypertension; D63.0 Anemia in neoplastic disease; I48.91 Unspecified atrial fibrillation; R44.1 Visual hallucinations; R41.3 Other amnesia; Z90.710 Acquired absence of both cervix and uterus; Z88.8 Allergy status to other drugs, medicaments and biological substances; Z90.49 Acquired absence of other specified parts of digestive tract; Z87.891 Personal history of nicotine dependence
CPT/HCPCS: 36415; 51701; 71045; 71275; 80053; 81003; 81015; 82565; 83605; 83880; 83935; 84145; 84300; 84484; 85014; 85018; 85025; 85049; 85520; 85610; 85730; 87040; 87086; 88112; 88305; 90715; 93005; 93010; 93306; 94640; 94644; 94760; 96365; 96367; A4353; J0171; J0690; J1642; J1644; J1650; J1956; J2001; J2250; J2370; J2930; J3010; J3370; J3490; J7620; Q9967; S0020; S0028

== ENCOUNTER 2019-08-01 09:01 | Outpatient (CLI) | payer MEDICARE ==
--- NOTE | 2019-08-01 14:24 | PET ---
Radionucleotide PET with CT attenuation correction HISTORY: Malignant neoplasm right main bronchus with metastatic disease. Restaging. COMPARISON: 05/18/2019. FINDINGS: Physiologic uptake of radiotracer is present throughout the enteric system and along each u rinary tract. A right retropharyngeal lymph node now measures 1.2 cm greatest diameter and shows max SUV 16.8 (prev iously 3.7). A nonenlarged right posterior cervical lymph node shows slightly increased uptake max SUV 2.2. New bulky right supraclavicular adenopathy is present, max SUV 18.3. Left supraclavicular adenopathy now shows max SUV 5.2 (previously 2.5) Hypermetabolic lymph nodes are present throughout the mediastinum: Right paratracheal max SUV 13.6 (previously 8.7) Subcarinal 11.7 (6.9) Right hilum 9.6 (7.3) Left hilum 15.3 (6.7) Small focus of increased uptake is now associated with the lateral aspect of left rib 7, max SUV 2.5. A small hypermetabolic nodule within the right apical posterior medial pleural space now shows max HUFF V 4.3 (previously 2.5). Uptake associated with the mass at the lateral aspect of the right upper lobe shows max SUV 5.9 (previously 5.9) Mass within the right middle lobe now shows max SUV 6.2 (previously 7.7) Uptake associated with the right adrenal lesion now shows max SUV 2.2 (previously 7.0). On the nondiagnostic CT attenuation correction images, the right pleural fluid has increased since th e CT scan from 05/29/2019. Left pleural fluid and pericardial fluid have resolved. IMPRESSION : Overall, significant worsening of disease, with increased hypermetabolic activity associated with med iastinal and cervical lymph nodes. New lesions at the right supraclavicular level and left seventh rib now evident. Exceptions are slight improvement in activity associated with the right middle lobe mass and the righ t adrenal metastasis. Transcribed Date/Time: 08/01/2019 2:46 PM
== END 2019-08-01 09:02 | disposition home or self-care (01) ==
LOC: PET 09:01
PROVIDERS: ATTEND Internal Medicine Hematology & Oncology
DX: C34.90 Malignant neoplasm of unspecified part of unspecified bronchus or lung (principal)
CPT/HCPCS: 78815; A9552

== ENCOUNTER 2019-10-31 08:54 | Outpatient (CLI) | payer MEDICARE ==
--- NOTE | 2019-10-31 12:04 | PET ---
Radionucleotide PET scan with CT attenuation correction HISTORY: Malignant neoplasm of right mainstem bronchus with metastatic disease. Restaging. COMPARISON: 08/01/2019. FINDINGS: Physiologic uptake throughout the enteric system and along each urinary tract. Muscular upt carlos noted about the left shoulder and posterior paraspinous musculature. The peripheral wedge-shaped focus of soft tissue density at the far lateral aspect of the right upper lobe is much smaller than on the prior CT images. Max SUV now 2.0. At the medial segment right middle lobe, the soft tissue mass is smaller on the current exam, max SUV 1.6. A small lymph node within the right anterior mediastinum, along the groove between the a ascending ao rta and superior vena cava is smaller than on the previous study. Max SUV 3.7 (previously 9.4). Other areas of hypermetabolic activity throughout the chest and abdomen seen on the prior study have resolved. No new abnormalities are evident. Nondiagnostic CT attenuation correction images also show show interval resolution of the right pleura l fluid. IMPRESSION : Near complete interval response. The only residual hypermetabolic focus is at a small right anterior mediastinal lymph node. No new abnormalities are demonstrated.
== END 2019-10-31 08:55 | disposition home or self-care (01) ==
LOC: PET 08:54
PROVIDERS: ATTEND Internal Medicine Hematology & Oncology
DX: C34.01 Malignant neoplasm of right main bronchus (principal); R51 Headache
CPT/HCPCS: 78815; A9552

== ENCOUNTER 2020-02-06 07:34 | Outpatient (CLI) | payer MEDICARE ==
[2020-02-06] MEDS ORDERED: Magnevist 469MG/ML 20 ML VIAL ONE (10:46)
--- NOTE | 2020-02-06 11:59 | PET ---
PET CT: HISTORY: Malignant neoplasm of right mainstem bronchus with metastatic disease. Exam requested to evaluate res ponse to treatment and restaging. Patient is undergoing chemotherapy. TECHNIQUE: PET scanning with CT attenuation correction was performed from the base of the brain through the prox imal thighs following the intravenous administration of 12.4 mCi [id number] in the right antecubital fos sa. COMPARISON: 10/31/2019. FINDINGS: There is interval increase in uptake within the 12 x 9 mm right anterior mediastinal lymph node with a SUV of 7.5. This previously measured 12 x 6 mm and had a SUV of 3.7. The peripheral wedge-shaped focus of soft tissue density at the far lateral aspect of the right upper lobe is again seen with a stable maximum SUV of 2.0. The soft tissue density in the medial segment of the right middle lobe is also stable with a SUV of 1 .5. No radha hypermetabolism is seen in the neck, hilar regions, axilla, abdomen, or pelvis. No hypermeta bolic pulmonary nodules, liver, or adrenal lesions are seen. There is linear uptake in the T12 vertebral body which was not seen on the previous exam, with a SUV of 2.7, consistent with an acute/subacute fracture. No other abnormal areas of tracer localization ar e seen in the skeleton to suggest metastatic disease. There is physiologic activity in the GI and tracts, and the visualized portions of the brain. The CT scan used for attenuation correction demonstrates no evidence of pleural or pericardial effusi ons, or ascites. IMPRESSION: 1. Interval increase in hypermetabolic activity in the right anterior mediastinal lymph node since 0 10/31/2019. No new suspicious lesions are identified. 2. Acute/subacute compression fracture of T12. POS: JERODA
--- NOTE | 2020-02-06 12:01 | MRI ---
MRI BRAIN WITH AND WITHOUT CONTRAST: Date: 02/06/2020 HISTORY: Lung cancer. Comparison made to MRI brain dated 10/24/2019 and 05/19/2019. FINDINGS: The moderately severe chronic ischemic white matter changes seen in both cerebral hemispheres on FLAI R sequence appear stable. There is no evidence of restricted diffusion. There is no evidence of mass or edema. No abnormal enhancement identified. The maxillary sinuses are clear. There is increased mucosal edema in the mastoid air cells today. IMPRESSION: 1. Moderately severe chronic ischemic white matter changes appear stable. 2. No evidence of metastatic lesion. 3. Mild increased mucosal edema in the mastoid air cells. POS: AGW
== END 2020-02-06 07:35 | disposition home or self-care (01) ==
LOC: PET 07:34
PROVIDERS: ATTEND Internal Medicine Hematology & Oncology
DX: C34.01 Malignant neoplasm of right main bronchus (principal); G93.89 Other specified disorders of brain; S22.089A Unspecified fracture of T11-T12 vertebra, initial encounter for closed fracture
CPT/HCPCS: 70553; 78815; A9552; A9579

== ENCOUNTER 2020-05-07 09:56 | Outpatient (CLI) | payer MEDICARE | END 2020-05-07 09:57 | disposition home or self-care (01) | LOC: PET 09:56 | PROVIDERS: ATTEND Internal Medicine Hematology & Oncology | DX: C34.01 Malignant neoplasm of right main bronchus (principal) | CPT/HCPCS: 78815; A9552 ==

== ENCOUNTER 2020-05-07 12:31 | Outpatient (CLI) | payer MEDICARE ==
[~2020-05-07 12:31] MED LIST changes: -Iopamidol-370 76% 500 ML 1 ML ONE; +Magnevist 469MG/ML 20 ML VIAL ONE
== END 2020-05-07 12:32 | disposition home or self-care (01) ==
LOC: MRI 12:31
PROVIDERS: ATTEND Internal Medicine Hematology & Oncology
DX: C34.01 Malignant neoplasm of right main bronchus (principal); M62.81 Muscle weakness (generalized); R26.89 Other abnormalities of gait and mobility; R51.9 Headache, unspecified; I67.82 Cerebral ischemia
CPT/HCPCS: 70553; 78815; A9552; A9579

== ENCOUNTER 2020-07-16 09:06 | Day surgery (SDC) | payer MEDICARE ==
[2020-07-16] MEDS ORDERED: Sodium Chloride 0.9% 20 ML ONE (09:23)
[2020-07-16] MEDS ORDERED: diphenhydrAMINE 25 MG CAP PO SCH (10:15)
[2020-07-16] MEDS ORDERED: Acetaminophen 500 MG TAB PO SCH (10:15)
[2020-07-16 12:43] VITALS: TEMP 98
[2020-07-16 14:54] VITALS: BP 141/65
== END 2020-07-16 14:54 | disposition home or self-care (01) ==
LOC: ONC/OP 09:06
PROVIDERS: ATTEND Internal Medicine Hematology & Oncology
PROC: 30233N1 Transfusion of Nonautologous Red Blood Cells into Peripheral Vein, Percutaneous Approach (ICD-10-PCS; principal; 2020-07-16)
DX: D64.9 Anemia, unspecified (principal); D69.6 Thrombocytopenia, unspecified; Z88.8 Allergy status to other drugs, medicaments and biological substances
CPT/HCPCS: 36430; 86850; 86900; 86901; P9016; Q0163

== ENCOUNTER 2020-08-08 09:44 | Outpatient (CLI) | payer MEDICARE | END 2020-08-08 09:45 | disposition home or self-care (01) | LOC: PET 09:44 | PROVIDERS: ATTEND Internal Medicine Hematology & Oncology | DX: C34.01 Malignant neoplasm of right main bronchus (principal); I67.82 Cerebral ischemia; H74.8X9 Other specified disorders of middle ear and mastoid, unspecified ear | CPT/HCPCS: 70553; 78815; A9552 ==

== ENCOUNTER 2020-12-06 09:35 | Day surgery (SDC) | payer MEDICARE ==
[2020-12-06] MEDS ORDERED: Sodium Chloride 0.9% 20 ML ONE (09:51)
[2020-12-06] MEDS ORDERED: Acetaminophen 500 MG TAB PO SCH (10:00)
[2020-12-06] MEDS ORDERED: diphenhydrAMINE 25 MG CAP PO SCH (10:00)
[2020-12-06 13:43] VITALS: BP 126/56; TEMP 98
== END 2020-12-06 13:43 | disposition home or self-care (01) ==
LOC: ONC/OP 09:35
PROVIDERS: ATTEND Internal Medicine Hematology & Oncology
PROC: 30233N1 Transfusion of Nonautologous Red Blood Cells into Peripheral Vein, Percutaneous Approach (ICD-10-PCS; principal; 2020-12-06)
DX: D64.9 Anemia, unspecified (principal); D69.6 Thrombocytopenia, unspecified; Z88.8 Allergy status to other drugs, medicaments and biological substances
CPT/HCPCS: 36430; 86850; 86900; 86901; P9016; Q0163

== ENCOUNTER 2021-01-14 11:55 | Outpatient (CLI) | payer MEDICARE | END 2021-01-14 11:56 | disposition home or self-care (01) | LOC: PET 11:55 | PROVIDERS: ATTEND Internal Medicine Hematology & Oncology | DX: C34.01 Malignant neoplasm of right main bronchus (principal); D70.1 Agranulocytosis secondary to cancer chemotherapy; I67.82 Cerebral ischemia | CPT/HCPCS: 70553; 78815; A9552; A9579 ==

== ENCOUNTER 2021-01-28 13:54 | Inpatient (IN) | payer MEDICARE ==
[2021-01-28 14:28] LABS: #Lymphocytes 0.5 thou/uL (1.20-3.40); #Neutrophils 4.8 thou/uL (1.40-6.50); %Eosinophils 0.2 % (0.0-10.0); %Lymphocytes 9.5 % (21.0-51.0); %Monocytes 0.7 % (0.0-10.0); %Neutrophils 89.6 % (42.0-75.0); Hemoglobin 11.5 g/dL (12.0-16.0); Mean Corpuscular HGB CONC 32.5 g/dL (32.0-36.0); Mean Corpuscular Hemoglobin 30.7 pg (27.0-31.0); Mean Corpuscular Volume 94.5 fL (78.0-98.0); Mean Platelet Volume 6.8 fL (7.4-10.4); Platelet Count 244 thou/uL (130-400); RBC Distribution Width 14.5 % (11.5-14.5); Red Blood Cell (RBC) Count 3.75 mill/uL (4.20-5.40); White Blood Cell (WBC) Count 5.3 thou/uL (4.8-10.8)
[2021-01-28 14:40] LABS: Prothrombin Time 56.4 sec (12.0-14.7)
[2021-01-28 14:42] LABS: INR-International Normal Ratio 6.2
[2021-01-28 17:05] LABS: ALT (SGPT) Less than 7 U/L (8-55); AST (SGOT) 11 U/L (5-34); Albumin 4.2 g/dL (3.4-4.8); Alkaline Phosphatase 84 U/L (40-110); Anion Gap 13 mmol/L (10-20); BUN (Urea Nitrogen) 9 mg/dL (9.8-20.1); Bilirubin, Total 0.7 mg/dL (0.2-1.2); Calc. Creatinine Clearance 0 mL/min (70-130); Calcium 9.5 mg/dL (7.8-10.44); Carbon Dioxide 25 mmol/L (23-31); Chloride 106 mmol/L (98-107); Glucose 124 mg/dL (83-110); Potassium 3.8 mmol/L (3.5-5.1); Protein, Total 7.2 g/dL (5.8-8.1); Sodium 140 mmol/L (136-145)
[2021-01-28] MEDS ORDERED: Melatonin 3 MG TAB PO PRN (19:05)
[2021-01-28 19:30] LABS: Magnesium 1.6 mg/dL (1.6-2.6)
[2021-01-28] MEDS ORDERED: Electrolyte Replacement Protocol 1 EACH FS SCH (20:15)
[2021-01-28] MEDS ORDERED: Electrolyte Replacement Protocol FS PRN (20:15)
[2021-01-28] MEDS ORDERED: Magnesium 2 GM/50 ML 2 GM in Premix Bag 1 BAG IVPB SCH (20:15)
[2021-01-28] MEDS: Tetrahydrozoline 0.05% OPTH 15 ML BOT EA EYE SCH (22:11)
[2021-01-28] MEDS: Mirtazapine 15 MG TAB PO SCH (22:11)
[2021-01-28] MEDS: Carbidopa/Levodopa 25-100 mg Tablet PO SCH (22:12)
[2021-01-28] MEDS: Acetaminophen 500 MG TAB PO PRN (22:12)
[2021-01-28] MEDS ORDERED: Carbidopa/Levodopa 25-100 mg Tablet PO SCH (23:59)
[2021-01-29] MEDS: Carbidopa/Levodopa 25-100 mg Tablet PO SCH ×4 (04:19→21:34)
[2021-01-29 05:07] LABS: #Lymphocytes 0.9 thou/uL (1.20-3.40); #Monocytes 0.4 thou/uL (0.11-0.59); %Eosinophils 0.1 % (0.0-10.0); %Lymphocytes 20.3 % (21.0-51.0); %Monocytes 9.7 % (0.0-10.0); %Neutrophils 69.9 % (42.0-75.0); Hemoglobin 10.3 g/dL (12.0-16.0); Mean Corpuscular HGB CONC 32.2 g/dL (32.0-36.0); Mean Corpuscular Hemoglobin 30.4 pg (27.0-31.0); Mean Corpuscular Volume 94.4 fL (78.0-98.0); Mean Platelet Volume 6.9 fL (7.4-10.4); Platelet Count 230 thou/uL (130-400); RBC Distribution Width 14.4 % (11.5-14.5); White Blood Cell (WBC) Count 4.2 thou/uL (4.8-10.8)
[2021-01-29 05:17] LABS: Prothrombin Time 65.4 sec (12.0-14.7)
[2021-01-29 05:30] LABS: Anion Gap 12 mmol/L (10-20); BUN (Urea Nitrogen) 13 mg/dL (9.8-20.1); Calc. Creatinine Clearance 49 mL/min (70-130); Calcium 9.8 mg/dL (7.8-10.44); Carbon Dioxide 26 mmol/L (23-31); Chloride 106 mmol/L (98-107); Glucose 117 mg/dL (83-110); Magnesium 2.3 mg/dL (1.6-2.6); Potassium 3.8 mmol/L (3.5-5.1); Sodium 140 mmol/L (136-145)
[2021-01-29 05:35] LABS: INR-International Normal Ratio 7.4
[2021-01-29] MEDS ORDERED: Phytonadione 5 MG TAB PO SCH (08:30)
[2021-01-29] MEDS: Tetrahydrozoline 0.05% OPTH 15 ML BOT EA EYE SCH ×2 (09:25→21:38)
[2021-01-29 14:00] LABS: SARS-CoV-2 PCR by NAA Not Detected (NotDetected)
[2021-01-29] MEDS: Metoprolol Tartrate 25 MG TAB PO SCH (21:36)
[2021-01-29] MEDS: Mirtazapine 15 MG TAB PO SCH (21:36)
[2021-01-29] MEDS: Acetaminophen 500 MG TAB PO PRN (21:38)
[2021-01-30] MEDS: Carbidopa/Levodopa 25-100 mg Tablet PO SCH ×2 (03:58→09:03)
[2021-01-30] MEDS: Acetaminophen 500 MG TAB PO PRN (03:59)
[2021-01-30 05:42] LABS: #Eosinphils 0.1 thou/uL (0.0-0.7); #Lymphocytes 1.3 thou/uL (1.20-3.40); #Monocytes 0.8 thou/uL (0.11-0.59); #Neutrophils 4.4 thou/uL (1.40-6.50); %Basophils 0.1 % (0.0-1.0); %Eosinophils 1.4 % (0.0-10.0); %Lymphocytes 19.7 % (21.0-51.0); %Monocytes 12.1 % (0.0-10.0); %Neutrophils 66.8 % (42.0-75.0); Hemoglobin 9.3 g/dL (12.0-16.0); Mean Corpuscular HGB CONC 32.5 g/dL (32.0-36.0); Mean Corpuscular Hemoglobin 30.6 pg (27.0-31.0); Mean Corpuscular Volume 94.3 fL (78.0-98.0); Mean Platelet Volume 6.8 fL (7.4-10.4); Platelet Count 215 thou/uL (130-400); RBC Distribution Width 14.3 % (11.5-14.5); Red Blood Cell (RBC) Count 3.03 mill/uL (4.20-5.40); White Blood Cell (WBC) Count 6.6 thou/uL (4.8-10.8)
[2021-01-30 06:04] LABS: Phosphorus 2.6 mg/dL (2.3-4.7)
[2021-01-30 06:09] LABS: Anion Gap 12 mmol/L (10-20); BUN (Urea Nitrogen) 15 mg/dL (9.8-20.1); Calc. Creatinine Clearance 50 mL/min (70-130); Carbon Dioxide 25 mmol/L (23-31); Chloride 107 mmol/L (98-107); Glucose 94 mg/dL (83-110); Magnesium 1.8 mg/dL (1.6-2.6); Potassium 3.5 mmol/L (3.5-5.1); Sodium 140 mmol/L (136-145)
[2021-01-30] MEDS ORDERED: Magnesium 2 GM/50 ML 2 GM in Premix Bag 1 BAG IVPB SCH (07:00)
[2021-01-30] MEDS: Metoprolol Tartrate 25 MG TAB PO SCH (09:04)
[2021-01-30] MEDS: Tetrahydrozoline 0.05% OPTH 15 ML BOT EA EYE SCH (09:19)
[2021-01-30 11:05] LABS: INR-International Normal Ratio 1.8; Prothrombin Time 20.8 sec (12.0-14.7)
[2021-01-30 11:56] VITALS: BP 104/53; TEMP 97.6
== END 2021-01-30 12:50 | disposition home or self-care (01) | DRG 309 ==
LOC: ERS 13:54 → 2SW 17:50 → OBSVTOIN 01-29 09:49
PROVIDERS: ADMIT Internal Medicine; ATTEND Internal Medicine
DX: I48.3 Typical atrial flutter (principal); C34.91 Malignant neoplasm of unspecified part of right bronchus or lung; C79.9 Secondary malignant neoplasm of unspecified site; Z88.8 Allergy status to other drugs, medicaments and biological substances; Z79.01 Long term (current) use of anticoagulants; Z79.51 Long term (current) use of inhaled steroids; Z79.899 Other long term (current) drug therapy; Z90.710 Acquired absence of both cervix and uterus; Z90.49 Acquired absence of other specified parts of digestive tract; Z87.891 Personal history of nicotine dependence; Z20.822 Contact with and (suspected) exposure to COVID-19; Z92.21 Personal history of antineoplastic chemotherapy; I48.91 Unspecified atrial fibrillation; Z86.711 Personal history of pulmonary embolism; G20 Parkinson's disease; K21.9 Gastro-esophageal reflux disease without esophagitis; J44.9 Chronic obstructive pulmonary disease, unspecified; T45.515A Adverse effect of anticoagulants, initial encounter; Z82.49 Family history of ischemic heart disease and other diseases of the circulatory system; R79.1 Abnormal coagulation profile
CPT/HCPCS: 36415; 80048; 80053; 83735; 84100; 85025; 85610; 93005; 96365; G0378; J3475; U0003; U0005

== ENCOUNTER 2021-07-13 21:11 | Inpatient (IN) | payer MEDICARE ==
[2021-07-13 21:43] VITALS: BMI 17.4
[2021-07-13] MEDS ORDERED: Ondansetron PF 4 MG/2 ML Vial IVP PRN (22:57)
[2021-07-13] MEDS ORDERED: Carbidopa/Levodopa 25-100 mg Tablet PO SCH (23:00)
[2021-07-14] MEDS ORDERED: Mirtazapine 15 MG TAB PO SCH ×2 (00:45→21:00)
[2021-07-14 06:22] LABS: Anion Gap 11 mmol/L (10-20); BUN (Urea Nitrogen) 25 mg/dL (9.8-20.1); Calc. Creatinine Clearance 39 mL/min (70-130); Calcium 8.5 mg/dL (7.8-10.44); Carbon Dioxide 25 mmol/L (23-31); Chloride 105 mmol/L (98-107); Glucose 84 mg/dL (83-110); Magnesium 1.7 mg/dL (1.6-2.6); Potassium 3.9 mmol/L (3.5-5.1); Sodium 137 mmol/L (136-145)
[2021-07-14 06:37] LABS: INR-International Normal Ratio 0.9; Prothrombin Time 12.5 sec (12.0-14.7)
[2021-07-14 06:38] LABS: PTT 29.1 sec (22.9-36.1)
[2021-07-14 06:49] LABS: #Lymphocytes 0.8 thou/uL (1.20-3.40); #Monocytes 0.1 thou/uL (0.11-0.59); #Neutrophils 3.9 thou/uL (1.40-6.50); %Basophils 0.3 % (0.0-1.0); %Eosinophils 0.3 % (0.0-10.0); %Lymphocytes 16.9 % (21.0-51.0); %Monocytes 1.3 % (0.0-10.0); %Neutrophils 81.3 % (42.0-75.0); Band 1 % (5-11); Hemoglobin 10.8 g/dL (12.0-16.0); Lymphocytes 20 % (21-51); MDiff Complete? YES; Mean Corpuscular HGB CONC 33.8 g/dL (32.0-36.0); Mean Corpuscular Hemoglobin 30.1 pg (27.0-31.0); Mean Corpuscular Volume 88.9 fL (78.0-98.0); Metamyelocyte 2 % (0-0); Neutrophil 77 % (42-75); Platelet Count 21 thou/uL (130-400); Platelet Morphology Comment Appears Decreased; RBC Distribution Width 14.3 % (11.5-14.5); RBC Morphology Normal; Reflex for Review?? YES; White Blood Cell (WBC) Count 4.8 thou/uL (4.8-10.8)
[2021-07-14] MEDS ORDERED: Non-Formulary Item 1 EACH (Prochlorperazine Maleate [Compazine] 10 MG Tab) PO PRN (07:57)
[2021-07-14] MEDS ORDERED: Prochlorperazine Maleate 5 MG TAB PO PRN (08:01)
[2021-07-14] MEDS ORDERED: Carbidopa/Levodopa 25-250 mg Tablet PO SCH (09:00)
[2021-07-14] MEDS: Acetaminophen 325 MG TAB PO PRN (09:17)
[2021-07-14] MEDS: Carbidopa/Levodopa 25-100 mg Tablet PO SCH ×9 (09:18→22:46)
[2021-07-14] MEDS: Dexamethasone 4 MG TAB PO SCH ×2 (09:20→21:49)
[2021-07-14] MEDS: Carvedilol 3.125 MG TAB PO SCH ×2 (09:20→21:49)
[2021-07-14 13:29] LABS: SARS-CoV-2 PCR by NAA Not Detected (NotDetected)
[2021-07-15] MEDS: Carbidopa/Levodopa 25-100 mg Tablet PO SCH ×6 (00:24→11:15)
[2021-07-15 05:39] LABS: #Lymphocytes 0.9 thou/uL (1.20-3.40); #Monocytes 0.1 thou/uL (0.11-0.59); %Basophils 0.3 % (0.0-1.0); %Eosinophils 0.6 % (0.0-10.0); %Lymphocytes 22.6 % (21.0-51.0); %Monocytes 1.4 % (0.0-10.0); %Neutrophils 75.1 % (42.0-75.0); Hemoglobin 9.5 g/dL (12.0-16.0); Mean Corpuscular HGB CONC 33.8 g/dL (32.0-36.0); Mean Corpuscular Hemoglobin 30.1 pg (27.0-31.0); Mean Platelet Volume 12.9 fL (7.4-10.4); Platelet Count 29 thou/uL (130-400); RBC Distribution Width 14.2 % (11.5-14.5); Red Blood Cell (RBC) Count 3.17 mill/uL (4.20-5.40); White Blood Cell (WBC) Count 3.9 thou/uL (4.8-10.8)
[2021-07-15 05:51] LABS: Anion Gap 13 mmol/L (10-20); BUN (Urea Nitrogen) 21 mg/dL (9.8-20.1); Calc. Creatinine Clearance 41 mL/min (70-130); Calcium 8.6 mg/dL (7.8-10.44); Carbon Dioxide 22 mmol/L (23-31); Chloride 105 mmol/L (98-107); Glucose 96 mg/dL (83-110); Sodium 136 mmol/L (136-145)
[2021-07-15] MEDS: Carvedilol 3.125 MG TAB PO SCH (08:42)
[2021-07-15] MEDS: Dexamethasone 4 MG TAB PO SCH (08:42)
[2021-07-15] MEDS: Acetaminophen 325 MG TAB PO PRN (11:16)
[2021-07-15 11:34] VITALS: BP 130/66; TEMP 98.2
== END 2021-07-15 12:44 | disposition home or self-care (01) | DRG 813 ==
LOC: 2SW 21:11 → OBSVTOIN 07-15 11:47
PROVIDERS: ADMIT Family Medicine; ATTEND Emergency Medicine
DX: D69.59 Other secondary thrombocytopenia (principal); C79.89 Secondary malignant neoplasm of other specified sites; C34.91 Malignant neoplasm of unspecified part of right bronchus or lung; I48.91 Unspecified atrial fibrillation; J44.9 Chronic obstructive pulmonary disease, unspecified; G20 Parkinson's disease; T45.1X5A Adverse effect of antineoplastic and immunosuppressive drugs, initial encounter; Z20.822 Contact with and (suspected) exposure to COVID-19; K21.9 Gastro-esophageal reflux disease without esophagitis; Z86.711 Personal history of pulmonary embolism; Z79.899 Other long term (current) drug therapy; Z79.01 Long term (current) use of anticoagulants; Z90.49 Acquired absence of other specified parts of digestive tract; Z90.710 Acquired absence of both cervix and uterus; Z98.890 Other specified postprocedural states; Z87.891 Personal history of nicotine dependence; Y92.9 Unspecified place or not applicable
CPT/HCPCS: 36415; 80048; 83735; 85025; 85060; 85610; 85730; 93306; G0378; U0003; U0005

== ENCOUNTER 2021-07-25 08:45 | Outpatient (CLI) | payer MEDICARE | END 2021-07-25 08:46 | disposition home or self-care (01) | LOC: PET 08:45 | PROVIDERS: ATTEND Internal Medicine Hematology & Oncology | DX: C34.01 Malignant neoplasm of right main bronchus (principal); D70.1 Agranulocytosis secondary to cancer chemotherapy; T45.1X5A Adverse effect of antineoplastic and immunosuppressive drugs, initial encounter; I63.81 Other cerebral infarction due to occlusion or stenosis of small artery; I67.82 Cerebral ischemia | CPT/HCPCS: 70553; 78815; A9552 ==

== ENCOUNTER 2021-08-08 19:18 | Inpatient (IN) | payer MEDICARE ==
[2021-08-08 20:37] LABS: Hemoglobin 9.7 g/dL (12.0-16.0); Mean Corpuscular HGB CONC 32.2 g/dL (32.0-36.0); Mean Corpuscular Hemoglobin 28.5 pg (27.0-31.0); Mean Corpuscular Volume 88.5 fL (78.0-98.0); Platelet Count 83 thou/uL (130-400); RBC Distribution Width 14.6 % (11.5-14.5); White Blood Cell (WBC) Count 0.8 thou/uL (4.8-10.8)
[2021-08-08 20:46] LABS: ALT (SGPT) Less than 7 U/L (8-55); AST (SGOT) 7 U/L (5-34); Albumin 3.4 g/dL (3.4-4.8); Alkaline Phosphatase 62 U/L (40-110); Anion Gap 12 mmol/L (10-20); BUN (Urea Nitrogen) 13 mg/dL (9.8-20.1); Bilirubin, Total 1.4 mg/dL (0.2-1.2); Calc. Creatinine Clearance 0 mL/min (70-130); Calcium 8.6 mg/dL (7.8-10.44); Carbon Dioxide 22 mmol/L (23-31); Chloride 103 mmol/L (98-107); Globulin 2.7 g/dL (2.4-3.5); Glucose 91 mg/dL (83-110); Magnesium 1.6 mg/dL (1.6-2.6); Potassium 3.7 mmol/L (3.5-5.1); Protein, Total 6.1 g/dL (5.8-8.1); Sodium 133 mmol/L (136-145)
[2021-08-08 21:04] LABS: Band 6 % (5-11); Lymphocytes 64 % (21-51); MDiff Complete? YES; Monocytes 2 % (0-10); Neutrophil 24 % (42-75); Platelet Morphology Comment Appears Decreased; RBC Morphology Normal
[2021-08-08] MEDS ORDERED: levETIRAcetam 500 MG/5 ML VIAL SLOW IVP SCH (22:15)
[2021-08-09] MEDS ORDERED: Acetaminophen 650 MG Suppository PR PRN (01:21)
[2021-08-09] MEDS ORDERED: Ondansetron PF 4 MG/2 ML Vial IVP PRN (01:21)
[2021-08-09] MEDS ORDERED: Ondansetron ODT 4 MG TAB PO PRN (01:21)
[2021-08-09] MEDS ORDERED: Acetaminophen 325 MG TAB PO PRN (01:21)
[2021-08-09] MEDS ORDERED: Cefepime 2 GM in Sodium Chloride 0.9% 100 ML IVPB SCH (02:00)
[2021-08-09 06:00] LABS: Hemoglobin 8.6 g/dL (12.0-16.0); Mean Corpuscular HGB CONC 33.3 g/dL (32.0-36.0); Mean Corpuscular Hemoglobin 29.2 pg (27.0-31.0); Mean Corpuscular Volume 87.7 fL (78.0-98.0); Platelet Count 71 thou/uL (130-400); RBC Distribution Width 14.6 % (11.5-14.5); Red Blood Cell (RBC) Count 2.94 mill/uL (4.20-5.40); White Blood Cell (WBC) Count 0.7 thou/uL (4.8-10.8)
[2021-08-09] MEDS: Carbidopa/Levodopa 25-100 mg Tablet PO SCH ×6 (06:00→20:44)
[2021-08-09 06:25] LABS: Eosinophils 2 % (0-10); Lymphocytes 72 % (21-51); MDiff Complete? YES; Monocytes 16 % (0-10); Neutrophil 8 % (42-75); Platelet Morphology Comment Appears Decreased; RBC Morphology Normal
[2021-08-09 06:33] LABS: Anion Gap 11 mmol/L (10-20); BUN (Urea Nitrogen) 12 mg/dL (9.8-20.1); Calc. Creatinine Clearance 43 mL/min (70-130); Calcium 8.7 mg/dL (7.8-10.44); Carbon Dioxide 23 mmol/L (23-31); Chloride 107 mmol/L (98-107); Glucose 82 mg/dL (83-110); Potassium 3.8 mmol/L (3.5-5.1); Sodium 137 mmol/L (136-145)
[2021-08-09] MEDS ORDERED: Bisacodyl 5 MG TAB PO PRN (08:15)
[2021-08-09] MEDS ORDERED: NS 0.9% w/ 20 MEQ KCL 1,000 ML/1,000 ML BAG IV SCH (08:15)
[2021-08-09 09:06] VITALS: BMI 18.2
[2021-08-09] MEDS: Polyethylene Glycol 3350 17 GM Packet PO SCH (09:49)
[2021-08-09] MEDS: levETIRAcetam 500 MG/5 ML VIAL SLOW IVP SCH ×2 (09:49→21:59)
[2021-08-10] MEDS: Carbidopa/Levodopa 25-100 mg Tablet PO SCH ×5 (01:26→13:17)
[2021-08-10 06:33] LABS: Anion Gap 11 mmol/L (10-20); BUN (Urea Nitrogen) 9 mg/dL (9.8-20.1); Calc. Creatinine Clearance 46 mL/min (70-130); Calcium 8.7 mg/dL (7.8-10.44); Carbon Dioxide 23 mmol/L (23-31); Chloride 109 mmol/L (98-107); Glucose 84 mg/dL (83-110); Potassium 4.1 mmol/L (3.5-5.1); Sodium 139 mmol/L (136-145)
[2021-08-10] MEDS ORDERED: levETIRAcetam 500 MG TAB PO SCH (09:00)
[2021-08-10 09:20] VITALS: BP 98/65; TEMP 98
[2021-08-10 09:25] LABS: Hemoglobin 9.2 g/dL (12.0-16.0); Mean Corpuscular HGB CONC 32.8 g/dL (32.0-36.0); Mean Corpuscular Hemoglobin 29.2 pg (27.0-31.0); Mean Platelet Volume 8.8 fL (7.4-10.4); Platelet Count 77 thou/uL (130-400); RBC Distribution Width 14.9 % (11.5-14.5); Red Blood Cell (RBC) Count 3.14 mill/uL (4.20-5.40)
[2021-08-10] MEDS: Polyethylene Glycol 3350 17 GM Packet PO SCH (09:42)
[2021-08-10 09:46] LABS: Lymphocytes 65 % (21-51); MDiff Complete? YES; Monocytes 20 % (0-10); Neutrophil 15 % (42-75); Platelet Morphology Comment Appears Decreased; RBC Morphology Normal
== END 2021-08-10 14:43 | disposition home health service (06) | DRG 100 ==
LOC: ERS 19:18 → SJJU 22:10 → MSONC 08-09 08:35
PROVIDERS: ADMIT Family Medicine; ATTEND Family Medicine
DX: G40.119 Localization-related (focal) (partial) symptomatic epilepsy and epileptic syndromes with simple partial seizures, intractable, without status epilepticus (principal); D61.810 Antineoplastic chemotherapy induced pancytopenia; C34.90 Malignant neoplasm of unspecified part of unspecified bronchus or lung; E44.1 Mild protein-calorie malnutrition; Z68.1 Body mass index [BMI] 19.9 or less, adult; Z20.822 Contact with and (suspected) exposure to COVID-19; R33.9 Retention of urine, unspecified; K59.00 Constipation, unspecified; G20 Parkinson's disease; K21.9 Gastro-esophageal reflux disease without esophagitis; T45.1X5A Adverse effect of antineoplastic and immunosuppressive drugs, initial encounter; Z86.73 Personal history of transient ischemic attack (TIA), and cerebral infarction without residual deficits; Z79.899 Other long term (current) drug therapy; Z90.49 Acquired absence of other specified parts of digestive tract; Z90.710 Acquired absence of both cervix and uterus; Z98.890 Other specified postprocedural states; Z87.891 Personal history of nicotine dependence; Z86.711 Personal history of pulmonary embolism; Z80.1 Family history of malignant neoplasm of trachea, bronchus and lung
CPT/HCPCS: 36415; 70450; 71045; 72125; 80048; 80053; 83735; 83880; 84484; 85025; 93005; 95816; 95819; 95957; 96374; J0692; J1953; J3480; J3490; U0003; U0005